=== PATIENT | female | born 1960 | race Caucasian/White ===

== ENCOUNTER 2016-10-23 00:23 | Emergency (ER) | payer OTHER ==
[2016-10-23 00:27] VITALS: O2SAT 96
[2016-10-23] MEDS ORDERED: Phenergan 25 MG INJ IV ONE (00:35)
[2016-10-23] MEDS ORDERED: TORAdol 30 mg Injection IV ONE (00:35)
--- NOTE | 2016-10-23 00:41 | ERPHSYRPT ---
- History of Present Illness Time Seen by Provider: 10/23/16 00:27 Source: patient Exam Limitations: no limitations Patient Subjective Stated Complaint: chest and abdominal pain Triage Nursing Assessment: patient pupils perrl2, lung sounds diminished , pulses equal bilateral radius, bowl sounds active x4, states intermittant coughing, sweats, nausea Physician History: ABOUT 2 HOURS AGO PT STARTED WITH CONSTANT SHARP RIGHT SIDED ABDOMINAL/CHEST PAIN WITH DIAPHORESIS AND CHILLS. PT ALSO HAS HAD A NON-PRODUCTIVE COUGH FOR THE PAST 2 DAYS AND DIARRHEA X1 TODAY WITHOUT BLOOD. Allergies/Adverse Reactions: No Known Drug Allergies Allergy (Verified 05/11/16 02:59) Home Medications: Omeprazole 20 MG [Prilosec 20 mg] 20 mg PO DAILY 04/20/15 [History] Trazodone HCl 200 mg PO HS 10/29/15 [History] Buspirone HCl 7.5 mg PO BID 11/23/15 [History] Fluoxetine HCl [Prozac] 40 mg PO DAILY 11/23/15 [History] Albuterol Sulfate [Proair Hfa] 2 puff IH Q4HPRN PRN 05/11/16 [History] Fluticasone/Salmeterol Disc [Advair 250-50 Diskus 14 Dose] 1 each IH BID 05/11/16 [History] Folic Acid 1 mg PO DAILY 05/11/16 [History] Risperidone 1 mg [Risperdal 1 MG] 1 mg PO HS 05/11/16 [History] Sumatriptan Succinate [Imitrex 50 mg] 50 mg PO DAILY PRN PRN 05/11/16 [History] Hx Tetanus, Diphtheria Vaccination/Date Given: No Hx Influenza Vaccination/Date Given: Yes (2014) Hx Pneumococcal Vaccination/Date Given: Yes (06-28-12) - Review of Systems Constitutional: Chills, No Fever Respiratory: Cough Cardiac: Chest Pain Abdominal/Gastrointestinal: Abdominal Pain, Diarrhea, No Vomiting Endocrine: Excessive Sweating All Other Systems: Reviewed and Negative - Past Medical History Pertinent Past Medical History: Yes Neurological History: No Pertinent History ENT History: No Pertinent History Cardiac History: No Pertinent History Respiratory History: COPD Endocrine Medical History: No Pertinent History Musculoskeletal History: No Pertinent History GI Medical History: Other History: No Pertinent History Psycho-Social History: Anxiety, Depression, Other Female Reproductive Disorders: No Pertinent History Other Medical History: LIVER FAILURE, hepatitis C - Past Surgical History Past Surgical History: Yes Neuro Surgical History: No Pertinent History Cardiac: No Pertinent History Respiratory: No Pertinent History Gastrointestinal: No Pertinent History Genitourinary: No Pertinent History Musculoskeletal: Other Female Surgical History: No Pertinent History Other Surgical History: repair of left arm fracture - Social History Smoking Status: Current every day smoker How long have you smoked: 35 years Exposure to second hand smoke: No Alcohol Use: Chronic Drug Use: none Patient Lives Alone: No Significant Family History: no pertinent family hx - Female History Hx Now: No - Nursing Vital Signs Nursing Vital Signs: Initial Vital Signs Temperature 97.8 F Temperature Source Oral Pulse Rate [] 112 Pulse Rate 93 Respiratory Rate 20 Blood Pressure [] 107/61 Pain Intensity 9 - Physical Exam General Appearance: alert Eye Exam: PERRL/EOMI, eyes nml inspection Ears, Nose, Throat Exam: TMs normal, pharynx normal, moist mucous membranes Neck Exam: normal inspection Respiratory Exam: lungs clear, airway intact Cardiovascular Exam: normal heart sounds Gastrointestinal/Abdomen Exam: soft, normal bowel sounds Back Exam: normal range of motion Extremity Exam: normal inspection, No pedal edema Neurologic Exam: alert, cooperative Skin Exam: warm, dry SpO2 Interpretation: normal SpO2: 96 Oxygen Delivery: Room Air - Course Nursing assessment & vital signs reviewed: Yes EKG Interpreted by Me: RATE (93), Sinus Rhythm, NORMAL AXIS, NORMAL INTERVALS - Radiology Exams Chest X-ray Interpretation: Interpreted by me (COPD) Ordered Tests: Active Orders 24 hr Category Date Time Status EKG-ER Only STAT Care 10/23/16 00:35 Active IV Insertion STAT Care 10/23/16 00:35 Active CHEST 1 VIEW (PORTABLE) Stat Exams 10/23/16 00:35 Taken AMYLASE Stat Lab 10/23/16 00:50 Completed CBC W DIFF Stat Lab 10/23/16 00:50 Completed CMP Stat Lab 10/23/16 00:50 Completed Ethyl Alcohol,Urine Stat Lab 10/23/16 00:50 Completed LIPASE Stat Lab 10/23/16 00:50 Completed TROPONIN Stat Lab 10/23/16 00:50 Completed UA Stat Lab 10/23/16 01:00 Completed Urine Triage Profile Stat Lab 10/23/16 01:00 Completed Medication Summary Generic Name Dose Route Start Last Admin Trade Name Freq PRN Reason Stop Dose Admin Sodium Chloride 1,000 mls @ 100 mls/hr 10/23/16 00:45 10/23/16 00:58 Sodium Chloride 0.9% 1000 Ml IV 11/22/16 00:44 100 mls/hr .Q10H LUIS Administration Discontinued Medications Generic Name Dose Route Start Last Admin Trade Name Carisa PRN Reason Stop Dose Admin Acetaminophen 650 mg 10/23/16 01:24 10/23/16 01:27 Tylenol 325 Mg PO 10/23/16 01:25 650 mg STAT ONE Administration Acetaminophen Confirm 10/23/16 01:26 Tylenol 325 Mg Administered 10/23/16 01:27 Dose 650 mg .ROUTE .STK-MED ONE Sodium Chloride Confirm 10/23/16 00:50 Sodium Chloride 0.9% 1000 Ml Administered 10/23/16 00:51 Dose 1,000 mls @ ud .ROUTE .STK-MED ONE Ketorolac Tromethamine 30 mg 10/23/16 00:35 10/23/16 00:57 Toradol 30 Mg Injection IV 10/23/16 00:36 30 mg STAT ONE Administration Ketorolac Tromethamine Confirm 10/23/16 00:50 Toradol 30 Mg Injection Administered 10/23/16 00:51 Dose 30 mg .ROUTE .STK-MED ONE Promethazine HCl 12.5 mg 10/23/16 00:35 10/23/16 00:57 Phenergan 25 Mg Inj IV 10/23/16 00:36 12.5 mg STAT ONE Administration Promethazine HCl Confirm 10/23/16 00:50 Phenergan 25 Mg Inj Administered 10/23/16 00:51 Dose 25 mg .ROUTE .STK-MED ONE Lab/Rad Data: Laboratory Result Diagrams 10/23/16 00:50 10/23/16 00:50 Laboratory Results 10/23/16 10/23/16 10/23/16 Range/Units 01:00 01:00 00:50 WBC (4.0-10.5) K/mm3 RBC (4.1-5.4) M/mm3 Hgb (12.0-16.0) gm/dl Hct (35-47) % MCV (78-100) fl MCH (26-32) pg MCHC (32-36) g/dl RDW (11.5-14.0) % Plt Count (150-450) K/mm3 MPV (6-9.5) fl Gran % (36.0-66.0) % Lymphocytes % (24.0-44.0) % Monocytes % (0.0-12.0) % Eosinophils % (0.00-5.0) % Basophils % (0.0-0.4) % Basophils # (0-0.4) Sodium 141 (136-145) mEq/L Potassium 3.7 (3.5-5.1) mEq/L Chloride 106 (98-107) mEq/L Carbon Dioxide 22.8 (21-32) mEq/L Anion Gap 15.5 H (5-15) MEQ/L BUN 18 (9-20) mg/dL Creatinine 1.01 (0.55-1.30) mg/dl Estimated GFR > 60 ML/MIN Glucose 90 (70-110) MG/DL Calcium 7.9 L (8.5-10.1) mg/dL Total Bilirubin 0.1 L (0.2-1.0) mg/dL AST 58 H (15-37) U/L ALT 65 (12-78) U/L Alkaline Phosphatase 96 (46-116) U/L Troponin I < 0.017 (0.000-0.056) ng/ml Serum Total Protein 6.8 (6.4-8.2) gm/dL Albumin 3.1 L (3.4-5.0) g/dL Amylase 67 (25-115) U/L Lipase 295 (73-393) U/L Ur Collection Type CLEAN CATCH Urine Color YELLOW (YELLOW) Urine Appearance CLEAR (CLEAR) Ur Specific [place] <=1.005 (1.005-1.025) Urine Protein NEGATIVE (Negative) Urine Glucose (UA) NEGATIVE (NEGATIVE) mg/dL Urine Ketones NEGATIVE (NEGATIVE) Urine Nitrite NEGATIVE (NEGATIVE) Urine Bilirubin NEGATIVE (NEGATIVE) Urine Urobilinogen 0.2 (0-1) mg/dL Urine WBC (Auto) NEGATIVE (NEGATIVE) Urine RBC (Auto) NEGATIVE (0-5) Ricci/ul Urine Opiates Level NEG. (NEGATIVE) Ur Methadone NEG. (NEGATIVE) Urine Barbiturates NEG. (NEGATIVE) Ur Phencyclidine (PCP) NEG. (NEGATIVE) Urine Amphetamine NEG. (NEGATIVE) U Benzodiazepine Level NEG. (NEGATIVE) Urine Cocaine NEG. (NEGATIVE) Urine Marijuana (THC) NEG. (NEGATIVE) Urine pH 6.0 (3-8.5) Urine Ethyl Alcohol (0.00-20) mg/dl Specimen Received 10/23/16 0105 10/23/16 10/23/16 Range/Units 00:50 00:50 WBC 7.9 (4.0-10.5) K/mm3 RBC 4.14 (4.1-5.4) M/mm3 Hgb 13.0 (12.0-16.0) gm/dl Hct 39.6 (35-47) % MCV 95.7 (78-100) fl MCH 31.4 (26-32) pg MCHC 32.8 (32-36) g/dl RDW 12.7 (11.5-14.0) % Plt Count 205 (150-450) K/mm3 MPV 9.5 (6-9.5) fl Gran % 52.1 (36.0-66.0) % Lymphocytes % 38.7 (24.0-44.0) % Monocytes % 6.8 (0.0-12.0) % Eosinophils % 2.0 (0.00-5.0) % Basophils % 0.4 (0.0-0.4) % Basophils # 0.03 (0-0.4) Sodium (136-145) mEq/L Potassium (3.5-5.1) mEq/L Chloride (98-107) mEq/L Carbon Dioxide (21-32) mEq/L Anion Gap (5-15) MEQ/L BUN (9-20) mg/dL Creatinine (0.55-1.30) mg/dl Estimated GFR ML/MIN Glucose (70-110) MG/DL Calcium (8.5-10.1) mg/dL Total Bilirubin (0.2-1.0) mg/dL AST (15-37) U/L ALT (12-78) U/L Alkaline Phosphatase (46-116) U/L Troponin I (0.000-0.056) ng/ml Serum Total Protein (6.4-8.2) gm/dL Albumin (3.4-5.0) g/dL Amylase (25-115) U/L Lipase (73-393) U/L Ur Collection Type Urine Color (YELLOW) Urine Appearance (CLEAR) Ur Specific [place] (1.005-1.025) Urine Protein (Negative) Urine Glucose (UA) (NEGATIVE) mg/dL Urine Ketones (NEGATIVE) Urine Nitrite (NEGATIVE) Urine Bilirubin (NEGATIVE) Urine Urobilinogen (0-1) mg/dL Urine WBC (Auto) (NEGATIVE) Urine RBC (Auto) (0-5) Ricci/ul Urine Opiates Level (NEGATIVE) Ur Methadone (NEGATIVE) Urine Barbiturates (NEGATIVE) Ur Phencyclidine (PCP) (NEGATIVE) Urine Amphetamine (NEGATIVE) U Benzodiazepine Level (NEGATIVE) Urine Cocaine (NEGATIVE) Urine Marijuana (THC) (NEGATIVE) Urine pH 6.0 (3-8.5) Urine Ethyl Alcohol 155 H (0.00-20) mg/dl Specimen Received - Departure Time of Disposition: 01:35 Departure Disposition: Home Clinical Impression: ALCOHOL INTOXICATION, ABDOMINAL PAIN, CHEST PAIN Condition: Fair Critical Care Time: No Referrals: HANY MOTA [Primary Care Provider] - Instructions: Abdominal Pain-Adult, Chest Pain, Alcohol Abuse and Alcoholism Additional Instructions: FOLLOW UP WITH PRIVATE DOCTOR TOMORROW.
[2016-10-23] MEDS ORDERED: Sodium Chloride 0.9% 1000 ML 1,000 ML IV SCH (00:45)
[2016-10-23] MEDS ORDERED: TORAdol 30 mg Injection ONE (00:50)
[2016-10-23] MEDS ORDERED: Sodium Chloride 0.9% 1000 ML 1,000 ML ONE (00:50)
[2016-10-23] MEDS ORDERED: Phenergan 25 MG INJ ONE (00:50)
[2016-10-23 00:56] LABS: BASOPHIL % 0.4 % (0.0-0.4); Granulocytes % 52.1 % (36.0-66.0); Lymphocytes % 38.7 % (24.0-44.0); Mean Cell Volume 95.7 fl (78-100); Mean Corpuscular Hemoglobin 31.4 pg (26-32); Mean Platelet Volume 9.5 fl (6-9.5); Monocytes % 6.8 % (0.0-12.0); Platelet Count 205 K/mm3 (150-450); Red Blood Count 4.14 M/mm3 (4.1-5.4); Red Cell Distribution Width 12.7 % (11.5-14.0); White Blood Count 7.9 K/mm3 (4.0-10.5)
[2016-10-23 01:13] LABS: Collection Type CLEAN CATCH
[2016-10-23 01:14] LABS: COMPLETE URINE MICROSCOPIC? NO
[2016-10-23] MEDS ORDERED: TYLENOL 325 MG PO ONE (01:24)
[2016-10-23] MEDS ORDERED: TYLENOL 325 MG ONE (01:26)
[2016-10-23 01:29] LABS: ALBUMIN 3.1 g/dL (3.4-5.0); ALKALINE PHOSPHATASE 96 U/L (46-116); ANION GAP 15.5 MEQ/L (5-15); BILIRUBIN,TOTAL 0.1 mg/dL (0.2-1.0); BLOOD UREA NITROGEN 18 mg/dL (9-20); CHLORIDE 106 mEq/L (98-107); Carbon Dioxide 22.8 mEq/L (21-32); Glucose 90 MG/DL (70-110); LIPASE 295 U/L (73-393); Potassium 3.7 mEq/L (3.5-5.1); SGOT/AST 58 U/L (15-37); SGPT/ALT 65 U/L (12-78); SODIUM 141 mEq/L (136-145); TROPONIN < 0.017 ng/ml (0.000-0.056); Total Protein 6.8 gm/dL (6.4-8.2)
[2016-10-23 01:55] VITALS: BP 102/78; PULSE 72
--- NOTE | 2016-10-23 08:41 | XRAY ---
Indication: Chest pain. Comparison: October 29, 2015 Portable chest again demonstrates normal heart and lungs with left lower lung calcified granuloma. No new/acute findings.
== END 2016-10-23 01:45 | disposition home or self-care (01) ==
LOC: ED 00:23
DX: F10.129 Alcohol abuse with intoxication, unspecified (principal); R10.9 Unspecified abdominal pain; R07.89 Other chest pain; R61 Generalized hyperhidrosis; R05 Cough; R19.7 Diarrhea, unspecified; Z79.899 Other long term (current) drug therapy
CPT/HCPCS: 36000; 36415; 71010; 80053; 80307; 80320; 81002; 82150; 83690; 83986; 84484; 85025; 93005; 93041; 96360; 96374; 96375; 99283; J1885; J2550

== ENCOUNTER 2018-02-28 13:00 | Emergency (ER) | payer OTHER ==
[2018-02-28 13:16] VITALS: O2SAT 98
--- NOTE | 2018-02-28 13:42 | ERPHSYRPT ---
- History of Present Illness Time Seen by Provider: 02/28/18 13:20 Source: patient Exam Limitations: clinical condition Patient Subjective Stated Complaint: pt here for pain to right foot sonce last sunday. she states she foot fell asleep and then when she got up to walk on it it twisted, Triage Nursing Assessment: pt has brusing to right foot, slight amt of swellingnoted Physician History: PATIENT WITH A HISTORY OF BIPOLAR DISORDER, STOOD UP WHILE HALF ASLEEP AND TWISTED RIGHT FOOT AND ANKLE PAIN, SWELLING AND BRUISING. HAS PAIN UPON STANDING. Method of Injury: twisted Occurred: last week Quality: constant, throbbing Severity of Pain-Max: moderate Severity of Pain-Current: moderate Lower Extremities Pain: foot: right, ankle: right Modifying Factors: Improves With: movement Associated Symptoms: unable to bear weight Allergies/Adverse Reactions: No Known Drug Allergies Allergy (Verified 02/28/18 13:20) Home Medications: Omeprazole 20 MG [Prilosec 20 mg] 20 mg PO DAILY 04/20/15 [History] Trazodone HCl 200 mg PO HS 10/29/15 [History] Buspirone HCl 7.5 mg PO BID 11/23/15 [History] Fluoxetine HCl [Prozac] 40 mg PO DAILY 11/23/15 [History] Albuterol Sulfate [Proair Hfa] 2 puff IH Q4HPRN PRN 05/11/16 [History] Fluticasone/Salmeterol Disc [Advair 250-50 Diskus 14 Dose] 1 each IH BID 05/11/16 [History] Folic Acid 1 mg PO DAILY 05/11/16 [History] Risperidone 1 mg [Risperdal 1 MG] 1 mg PO HS 05/11/16 [History] SUMAtriptan succinate [Imitrex 50 mg] 50 mg PO DAILY PRN PRN 05/11/16 [History] Hx Tetanus, Diphtheria Vaccination/Date Given: No Hx Influenza Vaccination/Date Given: No Hx Pneumococcal Vaccination/Date Given: No Immunizations Up to Date: Yes - Review of Systems Constitutional: No Fever, No Chills Musculoskeletal: Injury, Joint Pain Psychological: No Symptoms - Past Medical History Pertinent Past Medical History: Yes Neurological History: No Pertinent History ENT History: No Pertinent History Cardiac History: No Pertinent History Respiratory History: COPD Endocrine Medical History: No Pertinent History Musculoskeletal History: No Pertinent History GI Medical History: Other History: No Pertinent History Psycho-Social History: Anxiety, Depression, Other Female Reproductive Disorders: No Pertinent History Other Medical History: LIVER FAILURE, hepatitis C - Past Surgical History Past Surgical History: Yes Neuro Surgical History: No Pertinent History Cardiac: No Pertinent History Respiratory: No Pertinent History Gastrointestinal: No Pertinent History Genitourinary: No Pertinent History Musculoskeletal: Other Female Surgical History: No Pertinent History Other Surgical History: repair of left arm fracture - Social History Smoking Status: Current every day smoker How long have you smoked: 35 years Exposure to second hand smoke: Yes Alcohol Use: Chronic Drug Use: none Patient Lives Alone: No Significant Family History: no pertinent family hx - Female History Hx Last Menstrual Period: post Hx Now: No - Nursing Vital Signs Nursing Vital Signs: Initial Vital Signs Temperature 98.1 F 02/28/18 13:09 Pulse Rate 70 02/28/18 13:09 Respiratory Rate 18 02/28/18 13:09 Blood Pressure 144/80 02/28/18 13:09 O2 Sat by Pulse Oximetry 98 02/28/18 13:09 Pain Scale Pain Intensity 6 - Physical Exam Knees Exam: right knee: ecchymosis, pain, soft tissue tenderness, swelling ( TENDERNESS RIGHT ANDKLE LATERAL MALLEOLUS, NO JOINT LAXITY UPON VARUS/VALUS STRESS, THERE IS ECCHYMOSIS INFERIOR TO LATERAL MALLEOLUS OVER LATERAL PROXIMAL CALCANEOUS) Foot Exam: right foot: pain, soft tissue tenderness, swelling (TENDERNESS WITH ECCHYMOSIS DISTAL 2ND TO 5TH METATARSALS, NO CREPITUS, TENDERNESS WITH SWELLLING PROXIMAL 5TH METATARSAL), other (RIGHT PEDIS PULSES 2+) Neuro/Tendon Exam: normal sensation, normal motor functions SpO2: 98 Oxygen Delivery: Room Air - Radiology Exams Right Foot X-ray Interpretation: Discussed w/ radiologist (NONDISPLACED TRANSVERSE FRACTURE THROUGH THE BASE OF RIGHT 5TH METATARSAL) Ordered Tests: Active Orders 24 hr Category Date Time Status Crutches STAT Care 02/28/18 14:27 Active Splint STAT Care 02/28/18 14:27 Active ANKLE (3 VIEWS) Stat Exams 02/28/18 13:34 Completed FOOT (MINIMUM 3 VIEWS) Stat Exams 02/28/18 13:34 Completed HEEL [OS CALCIS XRAY] Stat Exams 02/28/18 14:07 Completed - Progress Progress: pain not gone completely Progress Note: 02/28/18 14:36 TYLENOL 650MG ORALLY, RIGHT SHORT LEG ORTHOGLASS SPLINT, AND CRUTCHES Counseled pt/family regarding: diagnosis, need for follow-up, rad results - Departure Time of Disposition: 15:03 Departure Disposition: Home Clinical Impression: FRACTURE RIGHT PROXIMAL 5TH METATARSAL Condition: Stable Critical Care Time: No Referrals: HANY MOTA [Primary Care Provider] - Additional Instructions: MAINTAIN RIGHT LOWER LEG SPLINT UNTIL EVALUATED BY ORTHOPEDIC DR KENNY, CALL HIS OFFICE FOR APPOINTMENT TODAY TO SCHEDULE APPOINTMENT. AMBULATE USING CRUTCHES NONWEIGHT BEARING RIGHT FOOT. NORCO 10/325 EVERY 6 HOURS FOR PAIN NEEDED. ELEVATE FOOT WHILE SITTING OR SUPINE POSITION. TAKE COPY OF XRAY DISC TO DOCTORS OFFICE.
--- NOTE | 2018-02-28 14:29 | XRAY ---
Exam: 3 view right ankle series from 02/28/2018. Comparison: None. Indication: Right ankle pain, bruising and swelling. Findings: AP, oblique, and lateral images reveal no acute fracture of the distal right tibia or fibula. The right ankle mortise appears well-preserved and is uniform. Incidentally, I see nondisplaced transverse fracture through the base of the right fifth metatarsal on the lateral image. The remainder the right hindfoot appears unremarkable. There is a normal plantar arch. Impression: 1. Nondisplaced transverse fracture through the base of the right fifth metatarsal. 2. No acute fracture or dislocation of the right ankle is seen.
--- NOTE | 2018-02-28 14:31 | XRAY ---
Exam: Two-view radiograph series of the right calcaneus. Comparison: None. Indication: Right heel pain. Findings: Lateral and angled axial images of the right calcaneus were obtained. There is no evidence of acute fracture of the right calcaneus. Both the subtalar joint and calcaneocuboid joint appear unremarkable. I again see a nondisplaced transverse fracture through the base of the right fifth metatarsal. Impression: 1. No acute fracture of the right calcaneus is seen. 2. I again see an acute nondisplaced transverse fracture through the base of the right fifth metatarsal.
--- NOTE | 2018-02-28 14:35 | XRAY ---
Exam: 3 views of the right foot from 02/28/2018. Comparison: 3 views the right foot from 02/19/2013 Indication: Right foot pain, bruising and swelling. Findings: AP, oblique, and lateral radiographs of the right foot were obtained. I again see a nondisplaced transverse fracture through the base of the right fifth metatarsal. The tarsal-metatarsal junctions are aligned correctly. There is no other evidence of acute right foot fracture or dislocation. Mild soft tissue swelling overlies the lateral aspect of the proximal right fifth metatarsal. There is a normal plantar arch. The joint spaces appear unremarkable. No soft tissue foreign body is seen. Impression: 1. Acute, nondisplaced, transverse fracture through the base of the right fifth metatarsal. 2. No other acute fracture or dislocation of the right foot is seen.
[2018-02-28 15:29] VITALS: BP 125/92; PULSE 72
== END 2018-02-28 15:27 | disposition home or self-care (01) ==
LOC: ED 13:00
DX: S92.351A Displaced fracture of fifth metatarsal bone, right foot, initial encounter for closed fracture (principal); X50.1XXA Overexertion from prolonged static or awkward postures, initial encounter; M79.671 Pain in right foot; J44.9 Chronic obstructive pulmonary disease, unspecified; F41.8 Other specified anxiety disorders; B19.20 Unspecified viral hepatitis C without hepatic coma; Z72.0 Tobacco use
CPT/HCPCS: 29515; 73610; 73630; 73650; 99284

== ENCOUNTER 2019-05-29 14:54 | Emergency (ER) | payer OTHER ==
[2019-05-29] MEDS ORDERED: TORAdol 30 mg Injection IM ONE (15:22)
--- NOTE | 2019-05-29 15:25 | ERPHSYRPT ---
- History of Present Illness Time Seen by Provider: 05/29/19 15:22 Historian: patient Physician History: mild to mod off and on crampy rlq pain today, no fever, no NV, no injury, +rad to back Allergies/Adverse Reactions: No Known Drug Allergies Allergy (Verified 05/29/19 15:26) Home Medications: Omeprazole 20 MG [Prilosec 20 mg] 20 mg PO DAILY 04/20/15 [History] Trazodone HCl 200 mg PO HS 10/29/15 [History] Buspirone HCl 7.5 mg PO BID 11/23/15 [History] Fluoxetine HCl [Prozac] 40 mg PO DAILY 11/23/15 [History] Albuterol Sulfate [Proair Hfa] 2 puff IH Q4HPRN PRN 05/11/16 [History] Fluticasone/Salmeterol Disc [Advair 250-50 Diskus 14 Dose] 1 each IH BID 05/11/16 [History] Folic Acid 1 mg PO DAILY 05/11/16 [History] Risperidone 1 mg [Risperdal 1 MG] 1 mg PO HS 05/11/16 [History] SUMAtriptan succinate [Imitrex 50 mg] 50 mg PO DAILY PRN PRN 05/11/16 [History] Hx Tetanus, Diphtheria Vaccination/Date Given: No Hx Influenza Vaccination/Date Given: No Hx Pneumococcal Vaccination/Date Given: No - Review of Systems Constitutional: No Fever Eyes: No Eye Redness Ears, Nose, & Throat: No Mouth Pain Respiratory: No Dyspnea Cardiac: No Chest Pain Abdominal/Gastrointestinal: Abdominal Pain, No Vomiting Genitourinary Symptoms: No Dysuria Musculoskeletal: Back Pain Skin: No Rash Neurological: No Dizziness - Past Medical History Pertinent Past Medical History: Yes Neurological History: No Pertinent History ENT History: No Pertinent History Cardiac History: No Pertinent History Respiratory History: COPD Endocrine Medical History: No Pertinent History Musculoskeletal History: No Pertinent History GI Medical History: Other History: No Pertinent History Psycho-Social History: Anxiety, Depression, Other Female Reproductive Disorders: No Pertinent History Other Medical History: LIVER FAILURE, hepatitis C - Past Surgical History Past Surgical History: Yes Neuro Surgical History: No Pertinent History Cardiac: No Pertinent History Respiratory: No Pertinent History Gastrointestinal: No Pertinent History Genitourinary: No Pertinent History Musculoskeletal: Other Female Surgical History: No Pertinent History Other Surgical History: repair of left arm fracture - Social History Smoking Status: Current every day smoker How long have you smoked: 35 years Exposure to second hand smoke: Yes Alcohol Use: Chronic Drug Use: none Patient Lives Alone: No Significant Family History: no pertinent family hx - Nursing Vital Signs Nursing Vital Signs: Initial Vital Signs Temperature 98.5 F 05/29/19 15:16 Pulse Rate 64 05/29/19 15:16 Respiratory Rate 18 05/29/19 15:16 Blood Pressure 154/96 05/29/19 15:16 O2 Sat by Pulse Oximetry 98 05/29/19 15:16 Pain Scale Pain Intensity 9 - Physical Exam General Appearance: no apparent distress Eye Exam: eyes nml inspection Ears, Nose, Throat Exam: moist mucous membranes Neck Exam: normal inspection Respiratory Exam: normal breath sounds Cardiovascular Exam: regular rate/rhythm Gastrointestinal/Abdomen Exam: soft, tenderness, No rebound Back Exam: No vertebral tenderness Extremity Exam: normal range of motion, pelvis stable Neurologic Exam: alert, oriented x 3, cooperative Skin Exam: normal color, warm, dry - Course Nursing assessment & vital signs reviewed: Yes - CT Exams Abdomen/Pelvis CT Interpretation: Discussed w/radiologist, Other (nap in abdomen, +opacities in chest) Ordered Tests: Active Orders 24 hr Category Date Time Status IV Insertion STAT Care 05/29/19 15:21 Active ABDOMEN AND PELVIS W/0 CONTRAS [CT] Stat Exams 05/29/19 15:21 Completed CBC W DIFF Stat Lab 05/29/19 15:45 Completed CMP Stat Lab 05/29/19 15:45 Completed LIPASE Stat Lab 05/29/19 15:45 Completed Lactic Acid Stat Lab 05/29/19 15:51 Completed UA W/RFX UR CULTURE Stat Lab 05/29/19 16:05 Completed Medication Summary Discontinued Medications Generic Name Dose Route Start Last Admin Trade Name Freq PRN Reason Stop Dose Admin Ketorolac Tromethamine 30 mg 05/29/19 15:22 05/29/19 15:29 Toradol 30 Mg Injection IM 05/29/19 15:23 30 mg STAT ONE Administration Ketorolac Tromethamine Confirm 05/29/19 15:27 Toradol 30 Mg Injection Administered 05/29/19 15:28 Dose 30 mg .ROUTE .STK-MED ONE Lab/Rad Data: Laboratory Result Diagrams 05/29/19 15:45 05/29/19 15:45 Laboratory Results 05/29/19 05/29/19 05/29/19 Range/Units 16:05 15:51 15:45 WBC (4.0-10.5) K/mm3 RBC (4.1-5.4) M/mm3 Hgb (12.0-16.0) gm/dl Hct (35-47) % MCV (78-100) fl MCH (26-32) pg MCHC (32-36) g/dl RDW (11.5-14.0) % Plt Count (150-450) K/mm3 MPV (6-9.5) fl Gran % (36.0-66.0) % Eos # (Auto) (0-0.5) Absolute Lymphs (auto) (1.0-4.6) Absolute Monos (auto) (0.0-1.3) Lymphocytes % (24.0-44.0) % Monocytes % (0.0-12.0) % Eosinophils % (0.00-5.0) % Basophils % (0.0-0.4) % Absolute Granulocytes (1.4-6.9) Basophils # (0-0.4) Sodium 139 (137-145) mmol/L Potassium 4.7 (3.5-5.1) mmol/L Chloride 108 H (98-107) mmol/L Carbon Dioxide 24 (22-30) mmol/L Anion Gap 11.7 (5-15) MEQ/L BUN 25 H (7-17) mg/dL Creatinine 0.97 (0.52-1.04) mg/dL Estimated GFR > 60.0 ML/MIN Glucose 89 (74-106) mg/dL Lactic Acid 0.8 (0.4-2.0) Calcium 9.1 (8.4-10.2) mg/dL Total Bilirubin 0.40 (0.2-1.3) mg/dL AST 34 (14-36) U/L ALT 23 (0-35) U/L Alkaline Phosphatase 81 (38-126) U/L Serum Total Protein 7.7 (6.3-8.2) g/dL Albumin 4.0 (3.5-5.0) g/dL Lipase 294 (23-300) U/L Urine Color YELLOW (YELLOW) Urine Appearance SLIGHTLY CLOUDY (CLEAR) Urine pH 5.0 (5-6) Ur Specific [place] 1.019 (1.005-1.025) Urine Protein NEGATIVE (Negative) Urine Ketones TRACE (NEGATIVE) Urine Blood NEGATIVE (0-5) Ricci/ul Urine Nitrite NEGATIVE (NEGATIVE) Urine Bilirubin NEGATIVE (NEGATIVE) Urine Urobilinogen 2 (0-1) mg/dL Ur Leukocyte Esterase NEGATIVE (NEGATIVE) Urine WBC (Auto) 0-2 (0-5) /HPF Urine RBC (Auto) NONE (0-2) /HPF U Hyaline Cast (Auto) 26-50 (0-2) /LPF U Epithel Cells (Auto) NONE (FEW) /HPF Urine Bacteria (Auto) NONE (NEGATIVE) /HPF Urine Mucus (Auto) SLIGHT (NEGATIVE) /HPF Urine Culture Reflexed NO (NO) Urine Glucose NEGATIVE (NEGATIVE) mg/dL 05/29/19 Range/Units 15:45 WBC 7.4 (4.0-10.5) K/mm3 RBC 4.03 L (4.1-5.4) M/mm3 Hgb 12.9 (12.0-16.0) gm/dl Hct 38.9 (35-47) % MCV 96.5 (78-100) fl MCH 32.0 (26-32) pg MCHC 33.2 (32-36) g/dl RDW 13.1 (11.5-14.0) % Plt Count 244 (150-450) K/mm3 MPV 9.4 (6-9.5) fl Gran % 60.9 (36.0-66.0) % Eos # (Auto) 0.13 (0-0.5) Absolute Lymphs (auto) 2.18 (1.0-4.6) Absolute Monos (auto) 0.55 (0.0-1.3) Lymphocytes % 29.4 (24.0-44.0) % Monocytes % 7.4 (0.0-12.0) % Eosinophils % 1.8 (0.00-5.0) % Basophils % 0.5 (0.0-0.4) % Absolute Granulocytes 4.52 (1.4-6.9) Basophils # 0.04 (0-0.4) Sodium (137-145) mmol/L Potassium (3.5-5.1) mmol/L Chloride (98-107) mmol/L Carbon Dioxide (22-30) mmol/L Anion Gap (5-15) MEQ/L BUN (7-17) mg/dL Creatinine (0.52-1.04) mg/dL Estimated GFR ML/MIN Glucose (74-106) mg/dL Lactic Acid (0.4-2.0) Calcium (8.4-10.2) mg/dL Total Bilirubin (0.2-1.3) mg/dL AST (14-36) U/L ALT (0-35) U/L Alkaline Phosphatase (38-126) U/L Serum Total Protein (6.3-8.2) g/dL Albumin (3.5-5.0) g/dL Lipase (23-300) U/L Urine Color (YELLOW) Urine Appearance (CLEAR) Urine pH (5-6) Ur Specific [place] (1.005-1.025) Urine Protein (Negative) Urine Ketones (NEGATIVE) Urine Blood (0-5) Ricci/ul Urine Nitrite (NEGATIVE) Urine Bilirubin (NEGATIVE) Urine Urobilinogen (0-1) mg/dL Ur Leukocyte Esterase (NEGATIVE) Urine WBC (Auto) (0-5) /HPF Urine RBC (Auto) (0-2) /HPF U Hyaline Cast (Auto) (0-2) /LPF U Epithel Cells (Auto) (FEW) /HPF Urine Bacteria (Auto) (NEGATIVE) /HPF Urine Mucus (Auto) (NEGATIVE) /HPF Urine Culture Reflexed (NO) Urine Glucose (NEGATIVE) mg/dL - Progress Progress: improved Progress Note: 05/29/19 16:57 differential d/w pt as cancer, early appendicitis, see your doctor, return if worse, motrin - Departure Departure Disposition: Home Clinical Impression: Abdominal pain Qualifiers: Abdominal location: lower abdomen, unspecified Qualified Code(s): R10.30 - Lower abdominal pain, unspecified Condition: Stable Critical Care Time: No Referrals: HANY MOTA [Primary Care Provider] - Instructions: Acute Abdomen (Belly Pain), Adult (DC)
[2019-05-29 15:26] VITALS: O2SAT 98
[2019-05-29] MEDS ORDERED: TORAdol 30 mg Injection ONE (15:27)
[2019-05-29 16:04] LABS: Appearance SLIGHTLY CLOUDY (CLEAR); Bilirubin NEGATIVE (NEGATIVE); Blood NEGATIVE Ery/ul (0-5); Glucose NEGATIVE (NEGATIVE); Hyaline Casts 26-50 /LPF (0-2); Ketones TRACE (NEGATIVE); Leukocyte Esterase NEGATIVE (NEGATIVE); Mucus SLIGHT /HPF (NEGATIVE); Nitrite NEGATIVE (NEGATIVE); Protein,Urine Dip NEGATIVE (Negative); Specific Gravity 1.019 (1.005-1.025); Urobilinogen 2 mg/dL (0-1); WBC 0-2 /HPF (0-5)
[2019-05-29 16:11] LABS: ALKALINE PHOSPHATASE 81 U/L (38-126); ANION GAP 11.7 MEQ/L (5-15); BLOOD UREA NITROGEN 25 mg/dL (7-17); CHLORIDE 108 mmol/L (98-107); Calcium 9.1 mg/dL (8.4-10.2); Carbon Dioxide 24 mmol/L (22-30); Creatinine 1 0.97 mg/dL (0.52-1.04); Glucose 89 mg/dL (74-106); LIPASE 294 U/L (23-300); Potassium 4.7 mmol/L (3.5-5.1); SGOT/AST 34 U/L (14-36); SGPT/ALT 23 U/L (0-35); SODIUM 139 mmol/L (137-145); Total Protein 7.7 g/dL (6.3-8.2)
[2019-05-29 16:19] LABS: BASOPHIL % 0.5 % (0.0-0.4); Basophil (Absolute #) 0.04 (0-0.4); Eosinophil % 1.8 % (0.00-5.0); Eosinophil (Absolute #) 0.13 (0-0.5); Granulocyte Absolute (ANC) 4.52 (1.4-6.9); Granulocytes % 60.9 % (36.0-66.0); Hematocrit 38.9 % (35-47); Hemoglobin 12.9 gm/dl (12.0-16.0); Lymphocyte (Absolute #) 2.18 (1.0-4.6); Lymphocytes % 29.4 % (24.0-44.0); Mean Cell Volume 96.5 fl (78-100); Mean Corpuscular Hgb Concent. 33.2 g/dl (32-36); Mean Platelet Volume 9.4 fl (6-9.5); Monocyte (Absolute #) 0.55 (0.0-1.3); Monocytes % 7.4 % (0.0-12.0); Platelet Count 244 K/mm3 (150-450); Red Blood Count 4.03 M/mm3 (4.1-5.4); Red Cell Distribution Width 13.1 % (11.5-14.0); White Blood Count 7.4 K/mm3 (4.0-10.5)
--- NOTE | 2019-05-29 16:40 | XRAY ---
Indication: Right abdomen pain. Multiple contiguous axial images obtained through the abdomen and pelvis without contrast as ordered. Comparison: May 11, 2016. Lung bases demonstrates stable left lower lobe calcified granuloma. New left lung base irregular noncalcified masslike opacity measuring at least 1.2 x 2 cm in greatest axial dimension with new similar appearing right base 1.3 x 1.6 cm opacity both with irregular margins, possibly focal fibrosis/scarring or atelectasis though mass not completely excluded. Stomach is distended with food/fluid. Noncontrasted stomach and bowel loops appear nonobstructed. Normal air-filled appendix. No free fluid/air. Stable CT proven right lobe hepatic hemangioma. Remaining liver, gallbladder, pancreas, spleen, adrenal glands, kidneys, ureters, bladder, and uterus appear unremarkable for noncontrast exam. There remains mild aortoiliac calcifications without AAA. Osseous structures intact. Impression: 1. Stable hepatic hemangioma. 2. No new or acute intra-abdominal/pelvic abnormalities on this noncontrast exam. 3. New bibasilar pulmonary irregular masslike opacities as detailed, possible focal fibrosis/scarring or round atelectasis. Mass/malignancy not completely excluded. CTDI 8.07
[2019-05-29 17:06] VITALS: BP 151/92; PULSE 76
== END 2019-05-29 17:07 | disposition home or self-care (01) ==
LOC: ED 14:54
DX: R10.30 Lower abdominal pain, unspecified (principal)
CPT/HCPCS: 36000; 36415; 74176; 80053; 81001; 83605; 83690; 85025; 96372; 99284; J1885

== ENCOUNTER 2019-06-20 17:30 | Emergency (ER) | payer OTHER ==
--- NOTE | 2019-06-20 17:40 | ERPHSYRPT ---
- History of Present Illness Time Seen by Provider: 06/20/19 17:35 Source: patient, EMS Exam Limitations: other (ETOH +) Physician History: ssister called the ambulance stating that the patient has been drinking all day and she fell today. Patient has been to the ER before multiple times for the similar complaint. Patient complains of mild epigastric pain but other than that she says she wants to go home. patient clearly denies any fall. Occurred: this morning Reason for Fall: unknown Injuries/Pain Location: no injury Loss of Consciousness: unsure Quality: burning Severity of Pain-Max: mild Severity of Pain-Current: mild Modifying Factors: Improves With: other (alcohol) Allergies/Adverse Reactions: No Known Drug Allergies Allergy (Verified 06/20/19 17:44) Home Medications: Omeprazole 20 MG [Prilosec 20 mg] 20 mg PO DAILY 04/20/15 [History] Trazodone HCl 200 mg PO HS 10/29/15 [History] Buspirone HCl 7.5 mg PO BID 11/23/15 [History] Fluoxetine HCl [Prozac] 40 mg PO DAILY 11/23/15 [History] Albuterol Sulfate [Proair Hfa] 2 puff IH Q4HPRN PRN 05/11/16 [History] Fluticasone/Salmeterol Disc [Advair 250-50 Diskus 14 Dose] 1 each IH BID 05/11/16 [History] Folic Acid 1 mg PO DAILY 05/11/16 [History] Risperidone 1 mg [Risperdal 1 MG] 1 mg PO HS 05/11/16 [History] SUMAtriptan succinate [Imitrex 50 mg] 50 mg PO DAILY PRN PRN 05/11/16 [History] Hx Tetanus, Diphtheria Vaccination/Date Given: No Hx Influenza Vaccination/Date Given: No Hx Pneumococcal Vaccination/Date Given: No - Review of Systems Constitutional: No Fever, No Chills Eyes: No Symptoms Ears, Nose, & Throat: No Symptoms Respiratory: No Cough, No Dyspnea Cardiac: No Chest Pain, No Edema, No Syncope Abdominal/Gastrointestinal: Other (mmild epigastric pain), No Abdominal Pain, No Nausea, No Vomiting, No Diarrhea Genitourinary Symptoms: No Dysuria Musculoskeletal: No Back Pain, No Neck Pain Skin: No Rash Neurological: No Dizziness, No Focal Weakness, No Sensory Changes Psychological: No Symptoms Endocrine: No Symptoms All Other Systems: Reviewed and Negative - Past Medical History Pertinent Past Medical History: Yes Neurological History: No Pertinent History ENT History: No Pertinent History Cardiac History: No Pertinent History Respiratory History: COPD Endocrine Medical History: No Pertinent History Musculoskeletal History: No Pertinent History GI Medical History: Other History: No Pertinent History Psycho-Social History: Anxiety, Depression, Other Female Reproductive Disorders: No Pertinent History Other Medical History: LIVER FAILURE, hepatitis C - Past Surgical History Past Surgical History: Yes Neuro Surgical History: No Pertinent History Cardiac: No Pertinent History Respiratory: No Pertinent History Gastrointestinal: No Pertinent History Genitourinary: No Pertinent History Musculoskeletal: Other Female Surgical History: No Pertinent History Other Surgical History: repair of left arm fracture - Social History Smoking Status: Current every day smoker How long have you smoked: 35 years Exposure to second hand smoke: Yes Alcohol Use: Chronic Drug Use: none Patient Lives Alone: No Significant Family History: no pertinent family hx - Nursing Vital Signs Nursing Vital Signs: Initial Vital Signs Respiratory Rate 18 06/20/19 18:20 Pain Scale Pain Intensity 6 - [place] Coma Score Best Eye Response ([place]): (4) open spontaneously Best Verbal Response ([place]): (5) oriented Best Motor Response ([place]): (6) obeys commands [place] Total: 15 - Physical Exam General Appearance: no apparent distress, alert, other (alcohol smell ) Head Injury: no evidence of injury Eye Exam: PERRL/EOMI ENT Exam: airway nml Neck Exam: normal inspection, No tenderness Respiratory/Chest Exam: normal breath sounds, No chest tenderness, No respiratory distress Cardiovascular Exam: normal heart sounds, regular rate/rhythm Gastrointestinal Exam: soft, No tenderness, No distention, No guarding, No ecchymosis Back Exam: normal inspection, No vertebral tenderness Extremity Exam: normal inspection, normal range of motion, pelvis stable, No deformities Neurologic Exam: alert, oriented x 3, cooperative, sensation nml, No motor deficits Skin Exam: normal color, warm, dry - Course Nursing assessment & vital signs reviewed: Yes Ordered Tests: Active Orders 24 hr Category Date Time Status HEAD WITHOUT CONTRAST [CT] Stat Exams 06/20/19 17:56 Stop Req Alcohol [ETHYL ALCOHOL] Stat Lab 06/20/19 18:08 Completed CBC W DIFF Stat Lab 06/20/19 18:08 Completed CMP Stat Lab 06/20/19 18:08 Completed LIPASE Stat Lab 06/20/19 18:08 Completed UA W/RFX UR CULTURE Stat Lab 06/20/19 18:09 Completed Urine Triage Profile Stat Lab 06/20/19 18:09 Completed Lab/Rad Data: Laboratory Result Diagrams 06/20/19 18:08 06/20/19 18:08 Laboratory Results 06/20/19 06/20/19 06/20/19 Range/Units 18:09 18:09 18:08 WBC (4.0-10.5) K/mm3 RBC (4.1-5.4) M/mm3 Hgb (12.0-16.0) gm/dl Hct (35-47) % MCV (78-100) fl MCH (26-32) pg MCHC (32-36) g/dl RDW (11.5-14.0) % Plt Count (150-450) K/mm3 MPV (6-9.5) fl Gran % (36.0-66.0) % Eos # (Auto) (0-0.5) Absolute Lymphs (auto) (1.0-4.6) Absolute Monos (auto) (0.0-1.3) Lymphocytes % (24.0-44.0) % Monocytes % (0.0-12.0) % Eosinophils % (0.00-5.0) % Basophils % (0.0-0.4) % Absolute Granulocytes (1.4-6.9) Basophils # (0-0.4) Sodium (137-145) mmol/L Potassium (3.5-5.1) mmol/L Chloride (98-107) mmol/L Carbon Dioxide (22-30) mmol/L Anion Gap (5-15) MEQ/L BUN (7-17) mg/dL Creatinine (0.52-1.04) mg/dL Estimated GFR ML/MIN Glucose (74-106) mg/dL Calcium (8.4-10.2) mg/dL Total Bilirubin (0.2-1.3) mg/dL AST (14-36) U/L ALT (0-35) U/L Alkaline Phosphatase (38-126) U/L Serum Total Protein (6.3-8.2) g/dL Albumin (3.5-5.0) g/dL Lipase (23-300) U/L Urine Color STRAW (YELLOW) Urine Appearance CLEAR (CLEAR) Urine pH 5.0 (5-6) Ur Specific [place] 1.004 (1.005-1.025) Urine Protein NEGATIVE (Negative) Urine Ketones NEGATIVE (NEGATIVE) Urine Blood NEGATIVE (0-5) Ricci/ul Urine Nitrite NEGATIVE (NEGATIVE) Urine Bilirubin NEGATIVE (NEGATIVE) Urine Urobilinogen NEGATIVE (0-1) mg/dL Ur Leukocyte Esterase NEGATIVE (NEGATIVE) Urine WBC (Auto) NONE (0-5) /HPF Urine RBC (Auto) NONE (0-2) /HPF U Epithel Cells (Auto) NONE (FEW) /HPF Urine Bacteria (Auto) NONE (NEGATIVE) /HPF Urine Mucus (Auto) SLIGHT (NEGATIVE) /HPF Urine Culture Reflexed NO (NO) Urine Glucose NEGATIVE (NEGATIVE) mg/dL Urine Opiates Level NEGATIVE (NEGATIVE) Ur Methadone NEGATIVE (NEGATIVE) Urine Barbiturates NEGATIVE (NEGATIVE) Ur Phencyclidine (PCP) NEGATIVE (NEGATIVE) Urine Amphetamine NEGATIVE (NEGATIVE) U Benzodiazepine Level NEGATIVE (NEGATIVE) Urine Cocaine NEGATIVE (NEGATIVE) Urine Marijuana (THC) POSITIVE (NEGATIVE) Ethyl Alcohol 284 H (0-10) mg/dL 06/20/19 06/20/19 Range/Units 18:08 18:08 WBC 7.5 (4.0-10.5) K/mm3 RBC 4.54 (4.1-5.4) M/mm3 Hgb 14.7 (12.0-16.0) gm/dl Hct 44.1 (35-47) % MCV 97.1 (78-100) fl MCH 32.4 H (26-32) pg MCHC 33.3 (32-36) g/dl RDW 14.3 H (11.5-14.0) % Plt Count 159 (150-450) K/mm3 MPV 10.2 H (6-9.5) fl Gran % 41.0 (36.0-66.0) % Eos # (Auto) 0.23 (0-0.5) Absolute Lymphs (auto) 3.56 (1.0-4.6) Absolute Monos (auto) 0.56 (0.0-1.3) Lymphocytes % 47.7 H (24.0-44.0) % Monocytes % 7.5 (0.0-12.0) % Eosinophils % 3.1 (0.00-5.0) % Basophils % 0.7 (0.0-0.4) % Absolute Granulocytes 3.07 (1.4-6.9) Basophils # 0.05 (0-0.4) Sodium 142 (137-145) mmol/L Potassium 4.3 (3.5-5.1) mmol/L Chloride 105 (98-107) mmol/L Carbon Dioxide 25 (22-30) mmol/L Anion Gap 16.0 H (5-15) MEQ/L BUN 13 (7-17) mg/dL Creatinine 0.81 (0.52-1.04) mg/dL Estimated GFR > 60.0 ML/MIN Glucose 89 (74-106) mg/dL Calcium 8.8 (8.4-10.2) mg/dL Total Bilirubin 0.40 (0.2-1.3) mg/dL AST 148 H (14-36) U/L ALT 188 H (0-35) U/L Alkaline Phosphatase 122 (38-126) U/L Serum Total Protein 8.8 H (6.3-8.2) g/dL Albumin 4.5 (3.5-5.0) g/dL Lipase 293 (23-300) U/L Urine Color (YELLOW) Urine Appearance (CLEAR) Urine pH (5-6) Ur Specific [place] (1.005-1.025) Urine Protein (Negative) Urine Ketones (NEGATIVE) Urine Blood (0-5) Ricci/ul Urine Nitrite (NEGATIVE) Urine Bilirubin (NEGATIVE) Urine Urobilinogen (0-1) mg/dL Ur Leukocyte Esterase (NEGATIVE) Urine WBC (Auto) (0-5) /HPF Urine RBC (Auto) (0-2) /HPF U Epithel Cells (Auto) (FEW) /HPF Urine Bacteria (Auto) (NEGATIVE) /HPF Urine Mucus (Auto) (NEGATIVE) /HPF Urine Culture Reflexed (NO) Urine Glucose (NEGATIVE) mg/dL Urine Opiates Level (NEGATIVE) Ur Methadone (NEGATIVE) Urine Barbiturates (NEGATIVE) Ur Phencyclidine (PCP) (NEGATIVE) Urine Amphetamine (NEGATIVE) U Benzodiazepine Level (NEGATIVE) Urine Cocaine (NEGATIVE) Urine Marijuana (THC) (NEGATIVE) Ethyl Alcohol (0-10) mg/dL - Progress Progress: improved Progress Note: 06/20/19 18:28 ppatient alert and oriented x3. Patient refused CT scan. 06/20/19 18:47 patient alert . She is walking and talking normally in the ER. Counseled pt/family regarding: drug and/or alcohol abuse, lab results, diagnosis , need for follow-up, smoking cessation - Departure Departure Disposition: Home Clinical Impression: Alcohol abuse, Anxiety, Alcohol dependence, Substance abuse Condition: Good Critical Care Time: No Referrals: HANY MOAT [Primary Care Provider] - Instructions: Preventing Falls Additional Instructions: stop smoking and drinking and drugs
[2019-06-20 18:12] LABS: BASOPHIL % 0.7 % (0.0-0.4); Basophil (Absolute #) 0.05 (0-0.4); Eosinophil % 3.1 % (0.00-5.0); Eosinophil (Absolute #) 0.23 (0-0.5); Granulocyte Absolute (ANC) 3.07 (1.4-6.9); Hematocrit 44.1 % (35-47); Hemoglobin 14.7 gm/dl (12.0-16.0); Lymphocyte (Absolute #) 3.56 (1.0-4.6); Lymphocytes % 47.7 % (24.0-44.0); Mean Cell Volume 97.1 fl (78-100); Mean Corpuscular Hemoglobin 32.4 pg (26-32); Mean Corpuscular Hgb Concent. 33.3 g/dl (32-36); Mean Platelet Volume 10.2 fl (6-9.5); Monocyte (Absolute #) 0.56 (0.0-1.3); Monocytes % 7.5 % (0.0-12.0); Platelet Count 159 K/mm3 (150-450); Red Blood Count 4.54 M/mm3 (4.1-5.4); Red Cell Distribution Width 14.3 % (11.5-14.0); White Blood Count 7.5 K/mm3 (4.0-10.5)
[2019-06-20 18:15] LABS: Appearance CLEAR (CLEAR); Bilirubin NEGATIVE (NEGATIVE); Blood NEGATIVE Ery/ul (0-5); Glucose NEGATIVE (NEGATIVE); Ketones NEGATIVE (NEGATIVE); Leukocyte Esterase NEGATIVE (NEGATIVE); Mucus SLIGHT /HPF (NEGATIVE); Nitrite NEGATIVE (NEGATIVE); Protein,Urine Dip NEGATIVE (Negative); Specific Gravity 1.004 (1.005-1.025); Urobilinogen NEGATIVE mg/dL (0-1)
[2019-06-20 18:25] LABS: ALBUMIN 4.5 g/dL (3.5-5.0); ALKALINE PHOSPHATASE 122 U/L (38-126); BLOOD UREA NITROGEN 13 mg/dL (7-17); CHLORIDE 105 mmol/L (98-107); Calcium 8.8 mg/dL (8.4-10.2); Carbon Dioxide 25 mmol/L (22-30); Creatinine 1 0.81 mg/dL (0.52-1.04); Glucose 89 mg/dL (74-106); LIPASE 293 U/L (23-300); Potassium 4.3 mmol/L (3.5-5.1); SGOT/AST 148 U/L (14-36); SGPT/ALT 188 U/L (0-35); SODIUM 142 mmol/L (137-145); Total Protein 8.8 g/dL (6.3-8.2)
[2019-06-20 18:29] LABS: Amphetamine,Urine NEGATIVE (NEGATIVE); Barbiturate,Urine NEGATIVE (NEGATIVE); Benzodiazepine,Urine NEGATIVE (NEGATIVE); Cocaine,Urine NEGATIVE (NEGATIVE); Methadone,Urine NEGATIVE (NEGATIVE); Opiate,Urine NEGATIVE (NEGATIVE); PCP,Urine NEGATIVE (NEGATIVE); THC,Urine POSITIVE (NEGATIVE)
== END 2019-06-20 18:59 | disposition home or self-care (01) ==
LOC: ED 17:30
DX: F10.20 Alcohol dependence, uncomplicated (principal); F19.10 Other psychoactive substance abuse, uncomplicated
CPT/HCPCS: 36415; 80053; 80307; 81001; 83690; 85025; 99284; G0480

== ENCOUNTER 2019-07-01 12:40 | Emergency (ER) | payer OTHER ==
--- NOTE | 2019-07-01 12:43 | ERPHSYRPT ---
- History of Present Illness Time Seen by Provider: 07/01/19 12:55 Source: patient, family Exam Limitations: no limitations Physician History: 59 y/o white female with nkda presents with red raised area on abd wall. she did not see an insect but thinks she suffered a spider bite. she noticed it yesterday. no fever and no drainage. only with mild pain. Timing/Duration: yesterday Quality: painful (mild) Severity: mild Location: torso (abd wall) Possible Causes: insect bite (presumed) Allergies/Adverse Reactions: No Known Drug Allergies Allergy (Verified 06/20/19 17:44) Home Medications: Omeprazole 20 MG [Prilosec 20 mg] 20 mg PO DAILY 04/20/15 [History] Trazodone HCl 200 mg PO HS 10/29/15 [History] Buspirone HCl 7.5 mg PO BID 11/23/15 [History] Fluoxetine HCl [Prozac] 40 mg PO DAILY 11/23/15 [History] Albuterol Sulfate [Proair Hfa] 2 puff IH Q4HPRN PRN 05/11/16 [History] Fluticasone/Salmeterol Disc [Advair 250-50 Diskus 14 Dose] 1 each IH BID 05/11/16 [History] Folic Acid 1 mg PO DAILY 05/11/16 [History] Risperidone 1 mg [Risperdal 1 MG] 1 mg PO HS 05/11/16 [History] SUMAtriptan succinate [Imitrex 50 mg] 50 mg PO DAILY PRN PRN 05/11/16 [History] Hx Tetanus, Diphtheria Vaccination/Date Given: No Hx Influenza Vaccination/Date Given: No Hx Pneumococcal Vaccination/Date Given: No - Review of Systems Constitutional: No Symptoms Eyes: No Symptoms Ears, Nose, & Throat: No Symptoms Respiratory: No Symptoms Cardiac: No Symptoms Abdominal/Gastrointestinal: No Symptoms Genitourinary Symptoms: No Symptoms Musculoskeletal: No Symptoms Skin: Other (mild redness localized) Neurological: No Symptoms Psychological: No Symptoms Endocrine: No Symptoms Hematologic/Lymphatic: No Symptoms Immunological/Allergic: No Symptoms All Other Systems: Reviewed and Negative - Past Medical History Pertinent Past Medical History: Yes Neurological History: No Pertinent History ENT History: No Pertinent History Cardiac History: No Pertinent History Respiratory History: COPD Endocrine Medical History: No Pertinent History Musculoskeletal History: No Pertinent History GI Medical History: Other History: No Pertinent History Psycho-Social History: Anxiety, Depression, Other Female Reproductive Disorders: No Pertinent History Other Medical History: LIVER FAILURE, hepatitis C - Past Surgical History Past Surgical History: Yes Neuro Surgical History: No Pertinent History Cardiac: No Pertinent History Respiratory: No Pertinent History Gastrointestinal: No Pertinent History Genitourinary: No Pertinent History Musculoskeletal: Other Female Surgical History: No Pertinent History Other Surgical History: repair of left arm fracture - Social History Smoking Status: Current every day smoker How long have you smoked: 35 years Exposure to second hand smoke: Yes Alcohol Use: Chronic Drug Use: none Patient Lives Alone: No Significant Family History: no pertinent family hx - Nursing Vital Signs Nursing Vital Signs: Initial Vital Signs Temperature 97.9 F 07/01/19 12:44 Pulse Rate 85 07/01/19 12:44 Respiratory Rate 18 07/01/19 12:44 Blood Pressure 162/95 07/01/19 12:44 O2 Sat by Pulse Oximetry 99 07/01/19 12:44 Pain Scale Pain Intensity 4 - Physical Exam General Appearance: no apparent distress, alert, anxiety Eye Exam: PERRL/EOMI, eyes nml inspection Ears, Nose, Throat Exam: normal ENT inspection, moist mucous membranes Neck Exam: normal inspection, non-tender, supple, full range of motion Respiratory Exam: airway intact, No chest tenderness, No respiratory distress Gastrointestinal/Abdomen Exam: soft, tenderness (mild tenderness on localized area of lower right of umbilicus superficial cellulitis 3cm horizontal and 1cm vertical. central bite site. 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 no ointments or creams. return to ED or primary doctor for worsening symptoms. use tylenol and ibuprofen for pain Prescriptions: Smz/Tmp Ds Tablet [Bactrim Ds Tablet] 1 udtab PO BID #14 tablet
[2019-07-01 13:45] VITALS: BP 158/90; PULSE 82; O2SAT 98
== END 2019-07-01 13:51 | disposition home or self-care (01) ==
LOC: ED 12:40
DX: L03.311 Cellulitis of abdominal wall (principal)
CPT/HCPCS: 99283

== ENCOUNTER 2020-12-04 11:18 | Emergency (ER) | payer OTHER ==
[2020-12-04 11:39] VITALS: O2SAT 98
--- NOTE | 2020-12-04 11:59 | ERPHSYRPT ---
- History of Present Illness Time Seen by Provider: 12/04/20 11:45 Source: patient Exam Limitations: no limitations Patient Subjective Stated Complaint: pt here for lower back pain since sunday morning, no injury, states hs not had bm for 3 days, voiding without difficulty, Triage Nursing Assessment: pt alert, resp easy, skin w/d/p. face mask in place, abd soft, Physician History: This is a 60-year-old white female who has a history of substance abuse, alcohol abuse, hepatitis, HIV positivity, 3 days of constipation, and 3 days of back pain without trauma or fall. Patient has not managed her constipation at all. Patient did start a new medication a few days ago and she states that it bothers her stomach and so she is no longer taking that medication. That medication is Cymbalta. Patient is here because of the constipation and the back pain she is having. She has not noticed any hematuria or dysuria. She has no chest pain and no shortness of breath. Patient sister brought the patient into the emergen cy department today. Her sister did state that she has been intermittently confused recently as well. Patient states that she has not used alcohol or illicit drugs since July 2020. Timing/Duration: day(s) (Few days) Severity: mild (Mild to moderate) Associated Symptoms: abdominal pain (Left lower quadrant), other (Back pain, constipation) Allergies/Adverse Reactions: No Known Drug Allergies Allergy (Verified 12/04/20 11:39) Home Medications: Omeprazole 20 MG [Prilosec 20 mg] 20 mg PO DAILY 04/20/15 [History] Fluoxetine HCl [Prozac] 40 mg PO DAILY 11/23/15 [History] Albuterol Sulfate [Proair Hfa] 2 puff IH Q4HPRN PRN 05/11/16 [History] Fluticasone/Salmeterol Disc [Advair 250-50 Diskus 14 Dose] 1 each IH BID 05/11/16 [History] Risperidone 1 mg [Risperdal 1 MG] 1 mg PO HS 05/11/16 [History] SUMAtriptan succinate [Imitrex 50 mg] 50 mg PO DAILY PRN PRN 05/11/16 [History] Ergocalciferol (Vitamin D2) [Vitamin D] 1 ea WEEKLY 12/04/20 [History] Folic Acid 1 mg [Folate 1 mg] 1 ea DAILY 12/04/20 [History] Metoprolol Tartrate 25 mg [Lopressor 25MG Tab] 1 ea DAILY 12/04/20 [History] Umeclidinium Brm/Vilanterol Tr [Anoro Ellipta 62.5-25 Mcg INH] 1 ea DAILY 12/04/20 [History] Hx Tetanus, Diphtheria Vaccination/Date Given: No Hx Influenza Vaccination/Date Given: Yes Hx Pneumococcal Vaccination/Date Given: No Immunizations Up to Date: Yes Travel Risk - International Travel Have you traveled outside of the country in past 3 weeks: No - Coronavirus Screening Are you exhibiting any of the following symptoms?: No Close contact with a COVID-19 positive Pt in past 14-21 Days: No - Review of Systems Constitutional: No Symptoms Eyes: No Symptoms Ears, Nose, & Throat: No Symptoms Respiratory: No Symptoms Cardiac: No Symptoms Abdominal/Gastrointestinal: Abdominal Pain (Left lower quadrant), Constipation Genitourinary Symptoms: No Symptoms Musculoskeletal: Back Pain Skin: No Symptoms Neurological: No Symptoms Psychological: No Symptoms Endocrine: No Symptoms Hematologic/Lymphatic: No Symptoms Immunological/Allergic: No Symptoms All Other Systems: Reviewed and Negative - Past Medical History Pertinent Past Medical History: Yes Neurological History: No Pertinent History ENT History: No Pertinent History Cardiac History: No Pertinent History Respiratory History: COPD Endocrine Medical History: No Pertinent History Musculoskeletal History: No Pertinent History GI Medical History: Hepatitis, Other History: No Pertinent History Psycho-Social History: Anxiety, Depression, Other Female Reproductive Disorders: No Pertinent History Other Medical History: LIVER FAILURE, hepatitis C, HIV - Past Surgical History Past Surgical History: Yes Neuro Surgical History: No Pertinent History Cardiac: No Pertinent History Respiratory: No Pertinent History Gastrointestinal: No Pertinent History Genitourinary: No Pertinent History Musculoskeletal: Other Female Surgical History: No Pertinent History Other Surgical History: repair of left arm fracture - Social History Smoking Status: Current every day smoker How long have you smoked: 35 years Exposure to second hand smoke: Yes Alcohol Use: Chronic Drug Use: none Patient Lives Alone: Yes Significant Family History: no pertinent family hx - Female History Hx Last Menstrual Period: psot Hx Now: No - Nursing Vital Signs Nursing Vital Signs: Initial Vital Signs Temperature 98.1 F 12/04/20 11:32 Pulse Rate 80 12/04/20 11:32 Respiratory Rate 16 12/04/20 11:32 Blood Pressure 119/73 12/04/20 11:32 O2 Sat by Pulse Oximetry 98 12/04/20 11:32 Pain Scale Pain Intensity [Back] 4 Pain Intensity 4 - Physical Exam General Appearance: no apparent distress, alert, anxiety, thin Eye Exam: PERRL/EOMI, eyes nml inspection Ears, Nose, Throat Exam: normal ENT inspection, moist mucous membranes Neck Exam: normal inspection, non-tender, supple, full range of motion Respiratory Exam: normal breath sounds, lungs clear, airway intact, No chest tenderness, No respiratory distress Cardiovascular Exam: regular rate/rhythm, normal heart sounds, normal peripheral pulses Gastrointestinal/Abdomen Exam: soft, normal bowel sounds, tenderness (Left lower quadrant), No guarding Pelvic Exam: not done Rectal Exam: not done Back Exam: normal inspection, normal range of motion, No CVA tenderness, No vertebral tenderness Extremity Exam: normal inspection, normal range of motion, pelvis stable Neurologic Exam: alert, oriented x 3, cooperative, 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 tested, normal mood/affect, nml cerebellar function, nml station & gait, sensation nml, other (Patient's neurologic exam is nonfocal.) Skin Exam: normal color, warm, dry Lymphatic Exam: No adenopathy SpO2 Interpretation: normal SpO2: 98 O2 Delivery: Room Air - Course Nursing assessment & vital signs reviewed: Yes Ordered Tests: Active Orders 24 hr Category Date Time Status ABDOMEN AND PELVIS W/0 CONTRAS [CT] Stat Exams 12/04/20 11:51 Taken HEAD WITHOUT CONTRAST [CT] Stat Exams 12/04/20 11:51 Taken UA W/RFX UR CULTURE Stat Lab 12/04/20 12:00 Completed Urine Triage Profile Stat Lab 12/04/20 12:00 Completed Lab/Rad Data: Laboratory Results 12/04/20 12/04/20 Range/Units 12:00 12:00 Urine Color YELLOW (YELLOW) Urine Appearance CLEAR (CLEAR) Urine pH 5.0 (5-6) Ur Specific [place] 1.011 (1.005-1.025) Urine Protein NEGATIVE (Negative) Urine Ketones NEGATIVE (NEGATIVE) Urine Blood NEGATIVE (0-5) Ricci/ul Urine Nitrite NEGATIVE (NEGATIVE) Urine Bilirubin NEGATIVE (NEGATIVE) Urine Urobilinogen NEGATIVE (0-1) mg/dL Ur Leukocyte Esterase NEGATIVE (NEGATIVE) Urine WBC (Auto) 3-5 (0-5) /HPF Urine RBC (Auto) NONE (0-2) /HPF U Epithel Cells (Auto) NONE (FEW) /HPF Urine Bacteria (Auto) NONE (NEGATIVE) /HPF Urine Mucus (Auto) SLIGHT (NEGATIVE) /HPF Urine Culture Reflexed NO (NO) Urine Glucose NEGATIVE (NEGATIVE) mg/dL Urine Opiates Level NEGATIVE (NEGATIVE) Ur Methadone NEGATIVE (NEGATIVE) Urine Barbiturates NEGATIVE (NEGATIVE) Ur Phencyclidine (PCP) NEGATIVE (NEGATIVE) Urine Amphetamine POSITIVE (NEGATIVE) U Benzodiazepine Level NEGATIVE (NEGATIVE) Urine Cocaine NEGATIVE (NEGATIVE) Urine Marijuana (THC) POSITIVE (NEGATIVE) - Progress Progress: unchanged Progress Note: 12/04/20 13:38 CAT scan of the head without contrast reveals no acute intracranial process. CAT scan of the abdomen and pelvis without contrast reveals significant fecal burden consistent with constipation but no other acute intra-abdominal/pelvic process. Counseled pt/family regarding: lab results, diagnosis, need for follow-up, rad results - Departure Departure Disposition: Home Clinical Impression: Left lower quadrant abdominal pain, Constipation, Methamphetamine abuse Condition: Stable Critical Care Time: No Referrals: CHANTE ARREOLA MD [Primary Care Provider] - Additional Instructions: Drink plenty of fluids. Give yourself a fleets enema rectally as instructed at home and drink 1 bottle of magnesium citrate orally rapidly at home 1/2-hour prior to the fleets enema. Add stool softeners daily per package instructions. Stop using marijuana and methamphetamines. Follow-up with your primary care physician for further management. Use Tylenol and ibuprofen for pain control
[2020-12-04 12:22] LABS: Appearance CLEAR (CLEAR); Bilirubin NEGATIVE (NEGATIVE); Blood NEGATIVE Ery/ul (0-5); Glucose NEGATIVE (NEGATIVE); Ketones NEGATIVE (NEGATIVE); Leukocyte Esterase NEGATIVE (NEGATIVE); Mucus SLIGHT /HPF (NEGATIVE); Nitrite NEGATIVE (NEGATIVE); Protein,Urine Dip NEGATIVE (Negative); Specific Gravity 1.011 (1.005-1.025); Urobilinogen NEGATIVE mg/dL (0-1)
[2020-12-04 12:33] LABS: Barbiturate,Urine NEGATIVE (NEGATIVE); Benzodiazepine,Urine NEGATIVE (NEGATIVE); Cocaine,Urine NEGATIVE (NEGATIVE); Methadone,Urine NEGATIVE (NEGATIVE); Opiate,Urine NEGATIVE (NEGATIVE); PCP,Urine NEGATIVE (NEGATIVE); THC,Urine POSITIVE (NEGATIVE)
[2020-12-04 13:22] LABS: Amphetamine,Urine POSITIVE (NEGATIVE)
[2020-12-04 13:41] VITALS: BP 174/90; PULSE 79
[2020-12-04] MEDS ORDERED: CITROMA 296 ML PO ONE (13:44)
[2020-12-04] MEDS ORDERED: CITROMA 296 ML ONE (13:53)
--- NOTE | 2020-12-04 18:26 | XRAY ---
Indication: Intermittent confusion. Multiple contiguous axial images obtained through the head without contrast. Comparison: November 23, 2015. Normal appearing brain parenchyma, ventricles, and bony calvarium. Visualized paranasal sinuses and mastoid air cells are clear. Impression: Continued normal CT head without contrast exam. Comment: Preliminary interpretation was made by [facility]. No critical discrepancy.
--- NOTE | 2020-12-04 18:30 | XRAY ---
Indication: Bilateral flank pain. Constipation. Multiple contiguous axial images obtained through the abdomen and pelvis without contrast. Comparison: May 29, 2019. Lung bases demonstrates mild atelectasis/scarring and tiny left base calcified granuloma. No infiltrate or effusion. Heart is not enlarged. Noncontrasted stomach and bowel loops appear nonobstructed. Normal appendix. There is now mild scattered colonic fecal debris throughout. No free fluid/air. Stable CT proven right lobe hepatic hemangioma. Remaining liver, gallbladder, pancreas, spleen, adrenal glands, kidneys, ureters, bladder, and uterus appear unremarkable for noncontrast exam. There remains mild aortoiliac calcifications without AAA. Osseous structures intact. Impression: 1. New mild diffuse fecal stasis. 2. Stable hepatic hemangioma. 3. Remaining CT abdomen/pelvis without contrast exam is negative. Comment: Preliminary interpretation was made by [facility]. No critical discrepancy.
== END 2020-12-04 13:57 | disposition home or self-care (01) ==
LOC: ED 11:18
DX: R10.32 Left lower quadrant pain (principal); K59.00 Constipation, unspecified; M54.5 Low back pain; F15.10 Other stimulant abuse, uncomplicated; Z79.899 Other long term (current) drug therapy
CPT/HCPCS: 70450; 74176; 80307; 81001; 99284; A9270-GY

== ENCOUNTER 2023-02-07 17:59 | Emergency (ER) | payer MEDICAID ==
[2023-02-07 18:17] VITALS: O2SAT 98
--- NOTE | 2023-02-07 18:39 | ERPHSYRPT ---
- History of Present Illness Source: patient, EMS Exam Limitations: no limitations Patient Subjective Stated Complaint: C/O pain to left rib area, face flushing, cough. Patient states these symptoms started after she received her COVID Booster vaccine and Shingles vaccine at [facility] approx one week ago. She is unsure if these symptoms are side effects from her vaccines of if she is ill. Triage Nursing Assessment: Patient brought into ER by ambulance. She is alert and oriented. No SOB. She was able to transfer self from ambulance cot to ER bed. Face is flushed. A weak, dry, occassional non-productive cough is present. Physician History: 62 yo WF brought to ER by EMS w L lateral thoracic pain which started after receiving Varicella vaccine. Pt states that she read where this could be a side effect. She also complains of mild face flushing/mild dyspnea/mild cough. Pt arrived in NAD. Timing/Duration: other (2-3 days) Severity: moderate Modifying Factors: Improves With: movement Associated Symptoms: denies symptoms, shortness of breath Allergies/Adverse Reactions: No Known Drug Allergies Allergy (Verified 02/07/23 18:03) Hx Tetanus, Diphtheria Vaccination/Date Given: Yes Hx Influenza Vaccination/Date Given: No Hx Pneumococcal Vaccination/Date Given: No Immunizations Up to Date: Yes Travel Risk - International Travel Have you traveled outside of the country in past 3 weeks: No - Coronavirus Screening Are you exhibiting any of the following symptoms?: Yes Symptoms: Cough: New Onset Close contact with a COVID-19 positive Pt in past 14-21 Days: No - Vaccine Status Have you recieved a Covid-19 vaccination: Yes 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 - Review of Systems Constitutional: No Symptoms, Malaise Eyes: No Symptoms Ears, Nose, & Throat: No Symptoms Respiratory: No Symptoms, Cough, Dyspnea Cardiac: No Symptoms Abdominal/Gastrointestinal: No Symptoms Genitourinary Symptoms: No Symptoms Musculoskeletal: No Symptoms Skin: No Symptoms, Rash Neurological: No Symptoms Psychological: No Symptoms Endocrine: No Symptoms Hematologic/Lymphatic: No Symptoms Immunological/Allergic: No Symptoms - Past Medical History Pertinent Past Medical History: Yes Neurological History: No Pertinent History ENT History: No Pertinent History Cardiac History: Hypertension Respiratory History: COPD Endocrine Medical History: No Pertinent History Musculoskeletal History: Fractures GI Medical History: Hepatitis, Other History: No Pertinent History Psycho-Social History: Anxiety, Depression, Other Female Reproductive Disorders: No Pertinent History Other Medical History: LIVER FAILURE, hepatitis C, HIV, LEFT ARM FRACTURE - Past Surgical History Past Surgical History: Yes Neuro Surgical History: No Pertinent History Cardiac: No Pertinent History Respiratory: No Pertinent History Gastrointestinal: No Pertinent History Genitourinary: No Pertinent History Musculoskeletal: Other Female Surgical History: No Pertinent History Other Surgical History: repair of left arm fracture - Social History Smoking Status: Current every day smoker How long have you smoked: 35 years Exposure to second hand smoke: Yes Alcohol Use: Chronic Drug Use: marijuana Patient Lives Alone: No (STAYING WITH SISTER) Significant Family History: no pertinent family hx - Nursing Vital Signs Nursing Vital Signs: Initial Vital Signs Temperature 98.2 F 02/07/23 18:05 Pulse Rate 94 H 02/07/23 18:05 Respiratory Rate 17 02/07/23 18:05 Blood Pressure 149/81 02/07/23 18:05 O2 Sat by Pulse Oximetry 98 02/07/23 18:05 Pain Scale Pain Intensity 7 Hypertensive - Physical Exam General Appearance: no apparent distress Eye Exam: PERRL/EOMI, eyes nml inspection Ears, Nose, Throat Exam: normal ENT inspection, TMs normal, pharynx normal, moist mucous membranes Neck Exam: normal inspection, non-tender, supple, full range of motion, No meningismus, No mass, No Brudzinski, No Kernig's, No carotid bruit Respiratory Exam: chest tenderness (Mild L lateral cutaneous TTP), lungs clear, airway intact, diminished breath sounds (BS decreased at bases B), No respiratory distress Cardiovascular Exam: regular rate/rhythm, normal heart sounds, normal peripheral pulses, capillary refill <2 sec, No murmur Gastrointestinal/Abdomen Exam: soft, normal bowel sounds, No tenderness Back Exam: normal inspection, normal range of motion, No CVA tenderness, No vertebral tenderness Extremity Exam: normal inspection, normal range of motion Neurologic Exam: alert, oriented x 3, cooperative, environmental services aide II-XII nml as tested, normal mood/affect, nml cerebellar function, nml station & gait, sensation nml Skin Exam: normal color, warm, dry, No rash Lymphatic Exam: No adenopathy SpO2 Interpretation: normal SpO2: 98 O2 Delivery: Room Air - Course Nursing assessment & vital signs reviewed: Yes EKG Interpreted by Me: RATE (NSR/rate87/Normal QT-QTc/IRBBB/Normal Twaves/No acute ST segment changes) - Radiology Exams Chest X-ray Interpretation: Interpreted by me (LLL infiltrate/atelectasis) - CT Exams Chest CT Interpretation: Discussed w/radiologist (CT chest wo contrast-posterior LLL consolidation/new 9mm spiculated nodule) Ordered Tests: Active Orders 24 hr Category Date Time Status EKG-ER Only STAT Care 02/07/23 18:38 Completed CHEST 1 VIEW (PORTABLE) Stat Exams 02/07/23 18:33 Taken CHEST WITHOUT CONTRAST [CT] Stat Exams 02/07/23 19:10 Taken CBC W DIFF Stat Lab 02/07/23 20:22 Completed CMP Stat Lab 02/07/23 20:22 Completed Lactic Acid Stat Lab 02/07/23 20:20 Completed Medication Summary Discontinued Medications Generic Name Dose Route Start Last Admin Trade Name Freq PRN Reason Stop Dose Admin Hydrocodone Bitart/Acetaminophen 2 tab 02/07/23 21:18 02/07/23 21:27 Hydrocodone/Apap 5/325 1 Tab Tablet PO 02/07/23 21:19 2 tab SENT HOME W/ PATIENT ONE Administration Hydrocodone Bitart/Acetaminophen Confirm 02/07/23 21:26 Hydrocodone/Apap 5/325 1 Tab Tablet Administered 02/07/23 21:27 Dose 2 tab .ROUTE .STK-MED ONE Ketorolac Tromethamine 30 mg 02/07/23 19:09 02/07/23 19:11 Ketorolac Tromethamine 30 Mg/Ml Inj IM 02/07/23 19:10 30 mg STAT ONE Administration Ketorolac Tromethamine Confirm 02/07/23 19:10 Ketorolac Tromethamine 30 Mg/Ml Inj Administered 02/07/23 19:11 Dose 30 mg .ROUTE .STK-MED ONE Levofloxacin 750 mg 02/07/23 21:15 02/07/23 21:27 Levofloxacin 250 Mg Tab PO 02/07/23 21:16 750 mg STAT ONE Administration Levofloxacin Confirm 02/07/23 21:26 Levofloxacin 250 Mg Tab Administered 02/07/23 21:27 Dose 750 mg .ROUTE .STK-MED ONE Lab/Rad Data: Laboratory Result Diagrams 02/07/23 20:22 02/07/23 20:22 Laboratory Results 02/07/23 02/07/23 02/07/23 Range/Units 20:22 20:22 20:20 WBC 6.5 (4.0-10.5) x10^3/uL RBC 3.79 L (4.1-5.4) x10^6/uL Hgb 11.4 L (12.0-16.0) g/dL Hct 35.2 (35-47) % MCV 92.9 (78-100) fL MCH 30.1 (26-32) pg MCHC 32.4 (32-36) g/dL RDW 12.8 (11.5-14.0) % Plt Count 275 (150-450) x10^3/uL MPV 9.1 (7.5-11.0) fL Gran % 53.4 (36.0-66.0) % Immature Gran % (Auto) 0.9 H (0.00-0.4) % Nucleat RBC Rel Count 0.0 (0.00-0.1) % Eos # (Auto) 0.32 (0-0.5) x10^3/uL Immature Gran # (Auto) 0.06 H (0.00-0.03) x10^3u/L Absolute Lymphs (auto) 1.94 (1.0-4.6) x10^3/uL Absolute Monos (auto) 0.64 (0.0-1.3) x10^3/uL Absolute Nucleated RBC 0.00 (0.00-0.01) x10^3u/L Lymphocytes % 30.0 (24.0-44.0) % Monocytes % 9.9 (0.0-12.0) % Eosinophils % 5.0 (0.00-5.0) % Basophils % 0.8 (0.0-0.4) % Absolute Granulocytes 3.45 (1.4-6.9) x10^3/uL Basophils # 0.05 (0-0.4) x10^3/uL Sodium 140 (137-145) mmol/L Potassium 4.2 (3.5-5.1) mmol/L Chloride 105 (98-107) mmol/L Carbon Dioxide 26 (22-30) mmol/L Anion Gap 13.5 (5-15) MEQ/L BUN 18 H (7-17) mg/dL Creatinine 0.78 (0.52-1.04) mg/dL Estimated GFR > 60.0 ML/MIN Glucose 120 H (74-106) mg/dL Lactic Acid 0.7 (0.4-2.0) Calcium 8.6 (8.4-10.2) mg/dL Total Bilirubin 0.30 (0.2-1.3) mg/dL AST 20 (14-36) U/L ALT 15 (0-35) U/L Alkaline Phosphatase 86 (38-126) U/L Serum Total Protein 7.0 (6.3-8.2) g/dL Albumin 3.5 (3.5-5.0) g/dL - Progress Progress: improved Progress Note: 02/07/23 21:19 Nursing note and vital signs reviewed No food or housing insecurities noted All lab, CXR, and CT result reviewed and shared w pt Pt refused admit at this time-risks explained to pt 750mg po Levaquin 30mg IM Toradol w improvement in pain Respirations non-labored and Sats good during entire visit Pt has appointment w Dr. Hull on 02/09/23 02/07/23 21:20 02/07/23 22:41 Counseled pt/family regarding: lab results, diagnosis, need for follow-up, rad results Medical Desision Making - Diagnostic Testing Diagnostic test were ordered, analyzed, and reviewed by me: Yes Radiological Interpretation: Interpreted by me, Reviewed by me, Discussed w/ radiologist - Risk of complications The pt has a mod risk of morbidity or mortality based on: Need for prescription drug management - Departure Departure Disposition: Home Clinical Impression: Pneumonia, Lung nodule Condition: Stable Critical Care Time: No Referrals: JAZMYN HULL [Primary Care Provider] - Follow up/PCP as directed Instructions: Pneumonia, Adult (DC), Pulmonary Nodule Additional Instructions: Continue with Levaquin for 7 days Pain meds as needed Follow up with Dr. Hull FRANDY Return to ER for shortness of breath or temperature greater than 100.5 Prescriptions: levoFLOXacin [Levofloxacin] 750 mg PO DAILY #7 tablet
[2023-02-07] MEDS ORDERED: TORAdol 30 mg Injection IM ONE (19:09)
[2023-02-07] MEDS ORDERED: TORAdol 30 mg Injection ONE (19:10)
[2023-02-07 20:24] LABS: Absolute Neutrophil Ct (ANC) 3.45 x10^3/uL (1.4-6.9); BASOPHIL % 0.8 % (0.0-0.4); Basophil (Absolute #) 0.05 x10^3/uL (0-0.4); Eosinophil (Absolute #) 0.32 x10^3/uL (0-0.5); Hematocrit 35.2 % (35-47); Hemoglobin 11.4 g/dL (12.0-16.0); IMMATURE GRAN # 0.06 x10^3u/L (0.00-0.03); IMMATURE GRAN % 0.9 % (0.00-0.4); Lymphocyte (Absolute #) 1.94 x10^3/uL (1.0-4.6); Mean Cell Volume 92.9 fL (78-100); Mean Corpuscular Hemoglobin 30.1 pg (26-32); Mean Corpuscular Hgb Concent. 32.4 g/dL (32-36); Mean Platelet Volume 9.1 fL (7.5-11.0); Monocyte (Absolute #) 0.64 x10^3/uL (0.0-1.3); Monocytes % 9.9 % (0.0-12.0); Neutrophil % 53.4 % (36.0-66.0); Platelet Count 275 x10^3/uL (150-450); Red Blood Count 3.79 x10^6/uL (4.1-5.4); Red Cell Distribution Width 12.8 % (11.5-14.0); White Blood Count 6.5 x10^3/uL (4.0-10.5)
[2023-02-07 20:34] LABS: ALBUMIN 3.5 g/dL (3.5-5.0); ALKALINE PHOSPHATASE 86 U/L (38-126); ANION GAP 13.5 MEQ/L (5-15); BLOOD UREA NITROGEN 18 mg/dL (7-17); CHLORIDE 105 mmol/L (98-107); Calcium 8.6 mg/dL (8.4-10.2); Carbon Dioxide 26 mmol/L (22-30); Creatinine 1 0.78 mg/dL (0.52-1.04); EST GLOMERULAR FILTRATION RATE > 60.0 ML/MIN; Glucose 120 mg/dL (74-106); Potassium 4.2 mmol/L (3.5-5.1); SGOT/AST 20 U/L (14-36); SGPT/ALT 15 U/L (0-35); SODIUM 140 mmol/L (137-145)
[2023-02-07] MEDS ORDERED: Levofloxacin 250MG Tablet PO ONE (21:15)
[2023-02-07] MEDS ORDERED: NORCO 5/325 MG PO ONE (21:18)
[2023-02-07] MEDS ORDERED: NORCO 5/325 MG ONE (21:26)
[2023-02-07] MEDS ORDERED: Levofloxacin 250MG Tablet ONE (21:26)
[2023-02-07 21:27] VITALS: BP 114/61; PULSE 72
--- NOTE | 2023-02-08 08:39 | XRAY ---
Indication: Left chest pain. No known injury. Multiple contiguous axial images obtained through the chest without contrast. Comparison: January 06, 2020 Mild respiration artifact. Lungs demonstrates new moderate posterior left lower lobe consolidating airspace disease. Inferior right middle lobe demonstrates new 9 mm spiculated nodule. Lingula again demonstrates minimal subsegmental atelectasis/scarring. Stable left lung calcified granulomas again largest left lower lobe. No effusion or pneumothorax. Heart not enlarged. Aorta is normal in course and caliber with minimal arteriosclerotic calcifications. Stable tiny left hilar calcified nodes. Bony thorax intact. Limited upper abdomen again demonstrates CT proven hepatic hemangioma and tiny splenic calcified granuloma. Impression: 1. New posterior left lower lobe consolidative airspace disease. Rule out aspiration pneumonia. 2. New 9 mm right middle lobe spiculated nodule. Malignancy is of primary concern. 3. Again chronic findings including CT proven hepatic hemangioma and old granulomatous disease.
--- NOTE | 2023-02-08 08:43 | XRAY ---
Indication: Left lateral rib pain. Comparison: October 23, 2016 Portable chest demonstrates new mild left base infiltrate/atelectasis. Stable left base calcified granuloma. Remaining heart, right lung, and bony thorax are unremarkable.
== END 2023-02-07 21:46 | disposition home or self-care (01) ==
LOC: ED 17:59
DX: J18.9 Pneumonia, unspecified organism (principal); R91.1 Solitary pulmonary nodule; I10 Essential (primary) hypertension; J44.9 Chronic obstructive pulmonary disease, unspecified; T80.52XA Anaphylactic reaction due to vaccination, initial encounter; Z72.0 Tobacco use; Z79.899 Other long term (current) drug therapy
CPT/HCPCS: 36415; 71045; 71250; 80053; 83605; 85025; 93005; 96372; 99284; J1885; A9270-GY

== ENCOUNTER 2023-08-25 16:57 | Emergency (ER) | payer OTHER ==
[2023-08-25 17:03] VITALS: TEMP 97.4
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
[2023-08-25 17:31] LABS: Absolute Neutrophil Ct (ANC) 2.73 x10^3/uL (1.4-6.9); BASOPHIL % 1.1 % (0.0-0.4); Basophil (Absolute #) 0.06 x10^3/uL (0-0.4); Eosinophil % 2.9 % (0.00-5.0); Eosinophil (Absolute #) 0.16 x10^3/uL (0-0.5); Hematocrit 41.5 % (35-47); Hemoglobin 13.1 g/dL (12.0-16.0); IMMATURE GRAN # 0.01 x10^3u/L (0.00-0.03); IMMATURE GRAN % 0.2 % (0.00-0.4); Lymphocyte (Absolute #) 2.07 x10^3/uL (1.0-4.6); Lymphocytes % 37.9 % (24.0-44.0); Mean Cell Volume 97.4 fL (78-100); Mean Corpuscular Hemoglobin 30.8 pg (26-32); Mean Corpuscular Hgb Concent. 31.6 g/dL (32-36); Mean Platelet Volume 9.6 fL (7.5-11.0); Monocyte (Absolute #) 0.43 x10^3/uL (0.0-1.3); Monocytes % 7.9 % (0.0-12.0); Platelet Count 193 x10^3/uL (150-450); Red Blood Count 4.26 x10^6/uL (4.1-5.4); White Blood Count 5.5 x10^3/uL (4.0-10.5)
[2023-08-25 17:45] LABS: ANION GAP 14.4 MEQ/L (5-15); BILIRUBIN,TOTAL 0.1 mg/dL (0.2-1.3); Creatinine 1 0.97 mg/dL (0.52-1.04); EST GLOMERULAR FILTRATION RATE 66.1 ML/MIN; Total Protein 7.4 g/dL (6.3-8.2)
[2023-08-25 17:55] LABS: NT PRO BNPII 563 pg/mL (<300); TROPONIN < 0.012 ng/mL (0.000-0.034)
[2023-08-25 18:07] LABS: INFLUENZA A NEGATIVE (NEGATIVE); INFLUENZA B NEGATIVE (NEGATIVE); RESPIRATORY SYNCTIAL VIRUS NEGATIVE (NEGATIVE); SARS-CoV-2 Xpert Express NEGATIVE (NEGATIVE)
[2023-08-25 18:31] VITALS: BP 119/77; PULSE 100; RESP 18; O2SAT 95
--- NOTE | 2023-08-25 21:12 | XRAY ---
Indication: Short of breath. Comparison: February 07, 2023 Portable chest demonstrates interval clearing left base infiltrate/atelectasis with mild residual. Remaining heart and right lung unremarkable. Bony thorax intact.
== END 2023-08-25 18:35 | disposition home or self-care (01) ==
LOC: ED 16:57
DX: R06.02 Shortness of breath (principal); F41.9 Anxiety disorder, unspecified; R91.1 Solitary pulmonary nodule; F10.129 Alcohol abuse with intoxication, unspecified; Y90.6 Blood alcohol level of 120-199 mg/100 ml; Z63.9 Problem related to primary support group, unspecified; I10 Essential (primary) hypertension; Z79.899 Other long term (current) drug therapy; Z72.0 Tobacco use
CPT/HCPCS: 0241U; 36415; 71045; 80053; 82077; 83880; 84484; 85025; 93005; 99283

== ENCOUNTER 2025-02-10 01:11 | Observation (INO) | payer OTHER ==
[2025-02-10] MEDS ORDERED: DUONEB 0.5-3 MG/3 ml Neb IH ONE (01:32)
[2025-02-10] MEDS ORDERED: PROVENTIL Solution 2.5 MG/0.5 ML IH ONE (01:32)
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
[2025-02-10] MEDS: PROVENTIL Solution 2.5 MG/0.5 ML IH ONE (01:40)
[2025-02-10] MEDS: DUONEB 0.5-3 MG/3 ml Neb IH ONE (01:40)
[2025-02-10 01:47] LABS: Absolute Neutrophil Ct (ANC) 8.29 x10^3/uL (1.56-6.13); BASOPHIL % 0.4 % (0.1-1.2); Basophil (Absolute #) 0.05 x10^3/uL (0.01-0.08); Eosinophil % 1.2 % (0.7-5.8); Eosinophil (Absolute #) 0.13 x10^3/uL (0.04-0.36); Hematocrit 34.5 % (34.1-44.9); Hemoglobin 10.9 g/dL (11.2-15.7); IMMATURE GRAN # 0.07 x10^3u/L (0.001-0.031); IMMATURE GRAN % 0.6 % (0.001-0.429); Lymphocyte (Absolute #) 1.25 x10^3/uL (1.18-3.74); Lymphocytes % 11.2 % (19.3-51.7); Mean Cell Volume 96.4 fL (79.4-94.8); Mean Corpuscular Hemoglobin 30.4 pg (25.6-32.2); Mean Corpuscular Hgb Concent. 31.6 g/dL (32.2-35.5); Mean Platelet Volume 9.4 fL (9.4-12.3); Monocyte (Absolute #) 1.41 x10^3/uL (0.24-0.86); Monocytes % 12.6 % (4.7-12.5); Platelet Count 240 x10^3/uL (182-369); Red Blood Count 3.58 x10^6/uL (3.93-5.22); Red Cell Distribution Width 12.6 % (11.7-14.4); White Blood Count 11.2 x10^3/uL (3.98-10.04)
[2025-02-10 01:57] LABS: ANION GAP 12.9 MEQ/L (5-15); Calcium 8.4 mg/dL (8.4-10.2); Creatinine 1 0.71 mg/dL (0.52-1.04); EST GLOMERULAR FILTRATION RATE 95.5 ML/MIN; Potassium 4.1 mmol/L (3.5-5.1)
[2025-02-10] MEDS ORDERED: DELTASONE 20 MG ONE (02:25)
[2025-02-10] MEDS: DELTASONE 20 MG PO ONE (02:26)
[2025-02-10] MEDS ORDERED: PROVENTIL 2.5 MG/3 ML NEB IH PRN (04:41)
[2025-02-10] MEDS ORDERED: solu-MEDROL 40 MG, Sterile H2O 10 ml 1 ML IV SCH (06:00)
[2025-02-10] MEDS: TYLENOL 325 MG PO PRN (06:01)
--- NOTE | 2025-02-10 06:02 | PCM.HP ---
History of Present Illness - Chief Complaint Chief Complaint: shortness of breath Date: 02/10/25 History of Present Illness: 64-year-old woman with a history of COPD on nocturnal oxygen, hypertension, tobacco use, bipolar disorder, hypothyroidism, who presents with dyspnea. Patient noted that yesterday, she woke up short of breath, gasping, unable to feel comfortable. She complains of wheezing and cough, but denies any fevers, chills, sore throat, chest pain, nausea, or sick contacts. She normally wears 2 to 3 L of oxygen at night, but was wearing it throughout the day yesterday. She notes that she was previously on nebulizers and inhalers, but has been out of t hese for a very long time. She tried staying at home, but continued to feel dyspneic, so came to the hospital. In the ED, she was given DuoNebs, albuterol, and prednisone 20 mg. Currently not requiring any oxygen. - Review of Systems Musculoskeletal: Joint Pain (Right shoulder pain after dislocation) All Other Systems: Reviewed and Negative Medications & Allergies Home Medications: Home Medication List Atorvastatin Calcium 10 mg PO DAILY 02/10/25 [History Confirmed 02/10/25] Escitalopram Oxalate [Lexapro] 10 mg PO DAILY 02/10/25 [History Confirmed 02/10/25] Levothyroxine Sodium 25 Mcg [Synthroid 25 Mcg] 25 mcg PO DAILY 02/10/25 [History Confirmed 02/10/25] Metoprolol Tartrate 50 mg [Lopressor 50 MG] 50 mg PO DAILY 02/10/25 [History Confirmed 02/10/25] Risperidone 1 mg [Risperdal 1 MG] 1 mg PO DAILY 02/10/25 [History Confirmed 02/10/25] Allergies/Adverse Reactions: Allergies Allergy/AdvReac Type Severity Reaction Status Date / Time No Known Drug Allergies Allergy Verified 09/23/24 09:57 - Past Medical History Past Medical History: Yes Neurological History: No Pertinent History ENT History: No Pertinent History Cardiac History: Hypertension Respiratory History: COPD Endocrine Medical History: Hypothyroidism Musculoskelatal History: Fractures GI Medical History: Hepatitis, Other History: No Pertinent History Pyscho-Social History: Anxiety, Depression, Other Reproductive Disorders: No Pertinent History Comment: LIVER FAILURE, hepatitis C - treated, HIV, LEFT ARM FRACTURE - Past Surgical History Past Surgical History: Yes Neuro Surgical History: No Pertinent History Cardiac History: No Pertinent History Respiratory Surgery: No Pertinent History GI Surgical History: No Pertinent History Genitourinary Surgical Hx: No Pertinent History Musculskeletal Surgical Hx: Other Female Surgical History: No Pertinent History Other Surgical History: repair of left arm fracture Significant Family History: no pertinent family hx - Social History Smoking Status: Current every day smoker (1/2 pack per day) How long have you smoked: 50 years Exposure to second hand smoke: Yes Alcohol: Rarely Drug Use: marijuana - Social Determinants of Health Will the patient participate in the screening: Yes Do you worry about a steady place to live?: Yes Do you have any problems with any of the following?: No known problems In the past 12 months,have you had to go without utilities?: No Have you or anyone in your house had to go without enough: Yes Transportation Issues: Yes Has anyone in your support network made you feel unsafe?: No Does the patient want assistance with any of the above?: Yes Comment: Currently living with friend. Would like to have some assistance with finding living. - Physical Exam Vital Signs: Vital Signs - 24 hr Temp Pulse Resp BP BP Pulse Ox 02/10/25 05:13 98.9 F 96 H 20 129/64 90 L 02/10/25 04:30 93 H 22 136/78 92 L 02/10/25 04:00 100 H 25 H 139/84 94 L 02/10/25 03:30 94 H 21 125/72 02/10/25 03:00 101 H 22 94 L 02/10/25 02:50 103 H 29 H 92 L 02/10/25 02:40 110 H 26 H 91 L 02/10/25 02:30 106 H 25 H 92 L 02/10/25 02:20 105 H 25 H 95 02/10/25 02:10 105 H 27 H 94 L 02/10/25 02:03 106 H 25 H 94 L 02/10/25 01:46 102 H 20 98 02/10/25 01:30 108 H 32 H 148/79 96 02/10/25 01:11 97.7 F 102 H 30 H 146/76 97 02/10/25 01:10 106 H 31 H 146/76 96 Physical Exam GEN: Sitting up in bed in no acute distress. HENT: Normocephalic, atraumatic. Moist mucous membranes. EYES: Normal inspection, anicteric sclera, extraocular movements intact. NECK: Supple, full range of motion CV: Regular rate and rhythm, no murmurs, no gallops. No JVD or edema. PULM: Clear to auscultation bilaterally, no work of breathing. On room air. ABD: Nondistended, nontender. MSK: No joint effusions, full range of motion SKIN: No rashes, normal color. NEURO: Face symmetric, no focal motor or sensory deficits. PSYCH: Alert, oriented x 3 Results - Labs Lab/Micro Results: Lab Results-Last 24 Hours 02/10/25 02/10/25 02/10/25 Range/Units 01:35 01:35 01:35 WBC 11.2 H (3.98-10.04) x10^3/uL RBC 3.58 L (3.93-5.22) x10^6/uL Hgb 10.9 L (11.2-15.7) g/dL Hct 34.5 (34.1-44.9) % MCV 96.4 H (79.4-94.8) fL MCH 30.4 (25.6-32.2) pg MCHC 31.6 L (32.2-35.5) g/dL RDW 12.6 (11.7-14.4) % Plt Count 240 (182-369) x10^3/uL MPV 9.4 (9.4-12.3) fL Gran % 74.0 H (34.0-71.1) % Immature Gran % (Auto) 0.6 H (0.001-0.429) % Nucleat RBC Rel Count 0.0 (0.00-0.2) % Eos # (Auto) 0.13 (0.04-0.36) x10^3/uL Immature Gran # (Auto) 0.07 H (0.001-0.031) x10^3u/L Absolute Lymphs (auto) 1.25 (1.18-3.74) x10^3/uL Absolute Monos (auto) 1.41 H (0.24-0.86) x10^3/uL Absolute Nucleated RBC 0.00 (0.00-0.012) x10^3u/L Lymphocytes % 11.2 L (19.3-51.7) % Monocytes % 12.6 H (4.7-12.5) % Eosinophils % 1.2 (0.7-5.8) % Basophils % 0.4 (0.1-1.2) % Absolute Granulocytes 8.29 H (1.56-6.13) x10^3/uL Basophils # 0.05 (0.01-0.08) x10^3/uL D-Dimer 0.53 H (0.0-0.50) mg/L Sodium 137 (135-145) mmol/L Potassium 4.1 (3.5-5.1) mmol/L Chloride 102 (98-107) mmol/L Carbon Dioxide 26 (22-30) mmol/L Anion Gap 12.9 (5-15) MEQ/L BUN 9 (7-17) mg/dL Creatinine 0.71 (0.52-1.04) mg/dL Estimated GFR 95.5 ML/MIN Glucose 159 H (74-106) mg/dL Calcium 8.4 (8.4-10.2) mg/dL - Radiology Impressions Radiology Exams & Impressions: Radiology Procedures Category Date Time Status CHEST 1 VIEW (PORTABLE) Stat Exams 02/10/25 01:25 Taken Chest x-ray no infiltrates, effusions, or edema. (Images personally reviewed) - Other Procedures and Tests Respiratory Therapy 02/10/25 04:41 Oxygen Nasal Cannula 2 lpm 02/10/25 05:53 Respiratory Therapy Consult ONCE Assessment/Plan (1) COPD with exacerbation Current Visit: Yes Status: Acute Assessment & Plan: 64-year-old with a history of COPD on nocturnal oxygen, hypertension, bipolar disorder, and tobacco use, who presents with mild COPD exacerbation. ## COPD with acute activation noted on chest x-ray to indicate pneumonia. Unclear the trigger is. Patient currently has no wheezing on exam after getting 1 treatment in the ED as well as prednisone. I suspect that if patient had her home nebulizers available, this could be managed at home. Will place in observation, monitor overnight to ensure remained stable Start prednisone 20 mg daily DuoNeb 6 hours, with PRN dose q.4 hours Have counseling case manager help with ensuring patient is able to resume her home bronchodilators ## Chronic nocturnal hypoxia currently not requiring any oxygen. Resume nocturnal oxygen 2 to 3 L as needed ## Nicotine dependence with cigarettes patient smokes 1/2 pack/day. Patient declined nicotine patch Continue to auto travel counselor on smoking cessation ## Hypertension blood pressure currently controlled. Resume Lopressor 50 mg BID ## Bipolar disorder Resume home Risperdal, Lexapro ## Hypothyroidism Resume home levothyroxine CODE STATUS: Full code Prophylaxis: Lovenox 40 mg daily Diet: Regular Dispo: Place in observation, expect discharge to home later today versus tomorrow Entirety of encounter took place via live audio/video telemedicine device, with remote physician and patient in hospital, with the assistance of bedside nurse. Code(s): J44.1 - CHRONIC OBSTRUCTIVE PULMONARY DISEASE W (ACUTE) EXACERBATION Telemedicine Encounter - Telemedicine Encounter Telemedicine Encounter: "The entirety of this encounter was performed via Telemedicine" This visit was performed using real-time audio and video connection between my location and thepatients locationwith the assistance of a surrogateat the patients location. Written or verbal consent was obtained from the patient/guardian to perform this visit [facility] technology. Any patient questions regarding the telemedicine interaction were answered.
[2025-02-10 07:57] VITALS: RESP 16
--- NOTE | 2025-02-10 08:51 | XRAY ---
Indication: Dyspnea. Comparison: November 07, 2024 Portable chest unchanged again demonstrating COPD and left base calcified granuloma. Heart not enlarged. Bony thorax intact. No new/acute findings.
[2025-02-10] MEDS: DUONEB 0.5-3 MG/3 ml Neb IH SCH (09:27)
[2025-02-10] MEDS: TYLENOL EXTRA STRENGTH 500 MG PO PRN (09:45)
[2025-02-10] MEDS: ENOXAPARIN SODIUM SQ SCH (09:45)
[2025-02-10] MEDS: Lexapro PO SCH (09:46)
[2025-02-10] MEDS: Risperdal 1 MG PO SCH (09:46)
[2025-02-10] MEDS: Zocor 10MG PO SCH (09:46)
[2025-02-10] MEDS: SYNTHROID 25 MCG PO SCH (09:46)
[2025-02-10] MEDS: DELTASONE 20 MG PO SCH (09:46)
[2025-02-10] MEDS: Lopressor 50 MG PO SCH (09:46)
[2025-02-10] MEDS: DICLOFENAC SODIUM TP SCH (10:55)
--- NOTE | 2025-02-10 12:09 | PCM.DS ---
Discharge Summary Date of Admission: 02/10/25 04:35 Date of Discharge: 02/10/25 Admitting Physician: REESE KENT MD Primary Care Provider: CARLITO CERNA Allergies Allergies No Known Drug Allergies Allergy (Verified 09/23/24 09:57) Hospital Summary - Hospital Course Hospital Course: Ms. Villa is a 64-year-old female with a known history of COPD on nocturnal oxygen, hypertension, tobacco use disorder, bipolar disorder, and hypothyroidism who presented with acute dyspnea and cough consistent with a mild COPD exacerbation. Symptoms were associated with wheezing and increased oxygen needs, though she denied systemic signs of infection. She reported being out of her home bronchodilator therapies for some time. In the emergency department, she was treated with DuoNeb, albuterol, and prednisone with improvement in symptoms and no longer required supplemental oxygen. Chest X-ray showed findings suggestive of pneumonia; however, the clinical significance and etiology remain unclear. She remained stable on observation with no further wheezing and ambulated with oxygen saturations within acceptable limits both at rest and with exertion, confirming no need for daytime oxygen therapy. Case management assisted with arranging for nebulizer equipment and medications prior to discharge. She was discharged in stable condition with instructions to resume her home medications, continue inhaled therapies, and follow up with her primary care provider and quality assurance auditor. I spent 35 minutes [id number] with the patient on the day of discharge performing discharge exam, discussing hospital stay and discharge instructions with patient and caregivers, preparation of discharge records, prescriptions & referral forms and addressing any questions/concerns the patient had as documented above. - Vitals & Intake/Output Vital Signs: Vital Signs Temperature 97.8 F 02/10/25 07:56 Pulse Rate 77 02/10/25 08:03 Respiratory Rate 16 02/10/25 08:03 Blood Pressure 121/68 02/10/25 07:56 O2 Sat by Pulse Oximetry 96 02/10/25 11:50 Intake & Output: Intake & Output 02/08/25 02/09/25 02/10/25 02/11/25 11:59 11:59 11:59 11:59 Intake Total 480 Balance 480 Weight 41.8 kg - Lab Result Diagrams: 02/10/25 01:35 02/10/25 01:35 Lab Results-Last 24 Hrs: Lab Results-Last 24 Hours 02/10/25 02/10/25 02/10/25 Range/Units 01:35 01:35 01:35 WBC 11.2 H (3.98-10.04) x10^3/uL RBC 3.58 L (3.93-5.22) x10^6/uL Hgb 10.9 L (11.2-15.7) g/dL Hct 34.5 (34.1-44.9) % MCV 96.4 H (79.4-94.8) fL MCH 30.4 (25.6-32.2) pg MCHC 31.6 L (32.2-35.5) g/dL RDW 12.6 (11.7-14.4) % Plt Count 240 (182-369) x10^3/uL MPV 9.4 (9.4-12.3) fL Gran % 74.0 H (34.0-71.1) % Immature Gran % (Auto) 0.6 H (0.001-0.429) % Nucleat RBC Rel Count 0.0 (0.00-0.2) % Eos # (Auto) 0.13 (0.04-0.36) x10^3/uL Immature Gran # (Auto) 0.07 H (0.001-0.031) x10^3u/L Absolute Lymphs (auto) 1.25 (1.18-3.74) x10^3/uL Absolute Monos (auto) 1.41 H (0.24-0.86) x10^3/uL Absolute Nucleated RBC 0.00 (0.00-0.012) x10^3u/L Lymphocytes % 11.2 L (19.3-51.7) % Monocytes % 12.6 H (4.7-12.5) % Eosinophils % 1.2 (0.7-5.8) % Basophils % 0.4 (0.1-1.2) % Absolute Granulocytes 8.29 H (1.56-6.13) x10^3/uL Basophils # 0.05 (0.01-0.08) x10^3/uL D-Dimer 0.53 H (0.0-0.50) mg/L Sodium 137 (135-145) mmol/L Potassium 4.1 (3.5-5.1) mmol/L Chloride 102 (98-107) mmol/L Carbon Dioxide 26 (22-30) mmol/L Anion Gap 12.9 (5-15) MEQ/L BUN 9 (7-17) mg/dL Creatinine 0.71 (0.52-1.04) mg/dL Estimated GFR 95.5 ML/MIN Glucose 159 H (74-106) mg/dL Calcium 8.4 (8.4-10.2) mg/dL - Radiology Exams Ordered Rad Exams-Entire Visit: Radiology Procedures Category Date Time Status CHEST 1 VIEW (PORTABLE) Stat Exams 02/10/25 01:25 Completed - Procedures and Test Procedures and Tests throughout Hospitalization: Therapy Orders & Screens 02/10/25 01:42 Respiratory Therapy Assessment DAILY Comment: 02/10/25 04:41 Oxygen Nasal Cannula 2 lpm Comment: 02/10/25 05:53 Respiratory Therapy Consult ONCE Comment: Reason For Exam: Diagnosis: COPD exacerbation 02/10/25 11:21 Qualify for Home Oxygen TODAY Comment: Diagnosis: shortness of breath Discharge Exam General Appearance: no apparent distress Neurologic Exam: alert, oriented x 3, cooperative Eye Exam: PERRL Ears, Nose, Throat Exam: normal ENT inspection Neck Exam: normal inspection Respiratory Exam: normal breath sounds, lungs clear Cardiovascular Exam: regular rate/rhythm, normal heart sounds Gastrointestinal/Abdomen Exam: soft, normal bowel sounds Pelvic Exam: deferred Rectal Exam: deferred Back Exam: normal inspection Extremity Exam: normal inspection Skin Exam: normal color Final Diagnosis/Problem List - Final Discharge Diagnosis/Problem (1) COPD with exacerbation Current Visit: Yes Status: Acute Assessment & Plan: Prednisone 20 mg daily for 5 days DuoNeb (albuterol/ipratropium) every 6 hours scheduled, with PRN dosing every 4 hours as needed Ensure home nebulizer and bronchodilator prescriptions arranged by case management Code(s): J44.1 - CHRONIC OBSTRUCTIVE PULMONARY DISEASE W (ACUTE) EXACERBATION (2) Nocturnal hypoxemia due to obstructive chronic bronchitis Current Visit: Yes Status: Acute Assessment & Plan: Resume 2 to 3 L oxygen at night only Code(s): J44.89 - OTHER SPECIFIED CHRONIC OBSTRUCTIVE PULMONARY DISEASE; G47.36 - SLEEP RELATED HYPOVENTILATION IN CONDITIONS CLASSD ELSWHR (3) HTN (hypertension) Current Visit: Yes Status: Acute Assessment & Plan: Resume Lopressor (metoprolol) 50 mg BID Code(s): I10 - ESSENTIAL (PRIMARY) HYPERTENSION (4) Bipolar disease, chronic Current Visit: Yes Status: Acute Assessment & Plan: Resume home risperidone and escitalopram Code(s): F31.9 - BIPOLAR DISORDER, UNSPECIFIED (5) Hypothyroid Current Visit: Yes Status: Acute Assessment & Plan: Resume home levothyroxine Code(s): E03.9 - HYPOTHYROIDISM, UNSPECIFIED (6) Smoker Current Visit: Yes Status: Acute Assessment & Plan: Patient declined nicotine replacement; continue to health counselor on smoking cessation Code(s): F17.200 - NICOTINE DEPENDENCE, UNSPECIFIED, UNCOMPLICATED (7) Substance abuse Current Visit: Yes Status: Acute Assessment & Plan: Patient states she will be going to a rehab facility Code(s): F19.10 - OTHER PSYCHOACTIVE SUBSTANCE ABUSE, UNCOMPLICATED - Discharge Discharge Date: 02/10/25 Disposition: Home, Self-Care Condition: Stable Prescriptions: New Budesonide/Formoterol Fumarate [Budesonide-Formoterol 160-4.5] 2 puff IH BID 30 Days #1 inh Prednisone 20 mg [Deltasone 20 mg] 20 mg PO BID 5 Days #10 tablet Albuterol/Ipratropium 3ml Neb* [DUONEB 0.5-3 MG/3 ml Neb] 3 ml IH Q4HPRN PRN 30 Days #120 amp PRN Reason: Shortness Of Breath Albuterol Common Canister [Ventolin Common Canister] 2 puff IH Q4-6HPRN PRN 30 Days #1 inh PRN Reason: Shortness Of Breath/Wheezing Continue Levothyroxine Sodium 25 Mcg [Synthroid 25 Mcg] 25 mcg PO DAILY Risperidone 1 mg [Risperdal 1 MG] 1 mg PO DAILY Metoprolol Tartrate 50 mg [Lopressor 50 MG] 50 mg PO DAILY Escitalopram Oxalate [Lexapro] 10 mg PO DAILY Atorvastatin Calcium 10 mg PO DAILY Follow up with: JAZMYN FULLER [ACTIVE STAFF, [facility]] - 02/16/25 10:00 am
[2025-02-10 12:11] VITALS: BP 112/62; PULSE 81; TEMP 97.6; O2SAT 92
== END 2025-02-10 13:50 | disposition home or self-care (01) ==
LOC: ED 01:11 → MED SURG 04:35
PROVIDERS: ADMIT Internal Medicine; ATTEND Internal Medicine
DX: J44.1 Chronic obstructive pulmonary disease with (acute) exacerbation (principal); Z59.811 Housing instability, housed, with risk of homelessness; Z59.82 Transportation insecurity; I10 Essential (primary) hypertension; F17.200 Nicotine dependence, unspecified, uncomplicated; E03.9 Hypothyroidism, unspecified; J44.89 Other specified chronic obstructive pulmonary disease; G47.36 Sleep related hypoventilation in conditions classified elsewhere; F31.9 Bipolar disorder, unspecified; F19.10 Other psychoactive substance abuse, uncomplicated; R09.02 Hypoxemia
CPT/HCPCS: 36415; 71045; 80048; 85025; 85379; 93005; 93268; 94640; 94760; 99284; J1650; Q3014; A9270-GY; G0378